=== PATIENT | male | born 1930 | race Caucasian/White ===

== ENCOUNTER 2016-08-18 19:23 | Inpatient (IN) | payer OTHER ==
[~2016-08-18] VITALS: Ht 180.3 cm; Wt 71.8 kg
[~2016-08-18 19:23] MED LIST: ABC PLUS TABLE1 EACH PO; ADULT LOW DOSE81 M1 PO; ADVAIR 250/501 DISK IH; ADVAIR HFA120 INHALA IH; ALBUTEROL SULF8.5 GM IH; ALEVE220 MG PO; ALLERGY25 M2 PO; ALLOPURINOL; ALLOPURINOL300 MG PO; AMBIEN5 MG PO; AMLODIPINE BESYL5 MG PO; ASCORBIC ACID500 M3 PO; ASPIR-LOW81 MG PO; Ascorbic Acid,Ester- PO; BABY ASPIRIN81 M1 PO; BENADRYL25 MG PO; C COMPLEX500 MG PO; CEFDINIR300 MG PO; CEFTRIAXONE1 G1 IM; CIPRO500 MG PO; COBAL-10001000 MCG/2 PO; COLACE100 MG PO; CORTIZONE-10 PL57 GM TP; CYANOCOBAL1000 MCG/2 IM; Celebrex; Coumadin,Jantoven PO; DITROPAN XL10 MG PO; Dulcolax PO; ENOXAPARIN30 MG/0.3 SC; Ecotrin PO; FLAGYL500 MG PO; FOLIC ACID1 MG PO; Folvite PO; GLIPIZIDE; GLIPIZIDE XL10 MG PO; GLIPIZIDE10 MG PO; GLUCOTROL XL10 MG PO; Glucotrol PO; HYDROCHLOROTH12.5 M3 PO; IMDUR60 MG PO; IRON325 M1 PO; ISOSORBIDE; ISOSORBIDE MONO60 MG PO; Imdur PO; KEFLEX500 MG PO; LEVAQUIN750 MG PO; LEVOFLOXACIN750 MG PO; LISINOPRIL10 MG PO; LISINOPRIL5 MG PO; LITE COAT ASPI325 M1 PO; LOVAZA1 GM PO; Levaquin PO; Lovaza PO; MACRODANTIN100 MG PO; METOPROLOL; METOPROLOL SUCC50 MG PO; MIRALAX255 GM PO; MIRTAZAPINE15 MG PO; MIRTAZAPINE30 MG PO; MONUROL SACHET 33 GM PO; NAMENDA10 MG PO; NAPROSYN500 MG PO; NITROFURANTOIN100 MG PO; NORCO 5/3251 TABLET PO; NORVASC10 MG PO; NORVASC2.5 MG PO; NORVASC5 MG PO; ONE-A-DAY ESSE1 EAC1 PO; OXYCODONE HCL5 MG PO; Oscal 500 w/Vitamin PO; PERCOCET 10/1 TABLET PO; PERCOCET 5/31 TABLET PO; PREDNISONE10 MG PO; PREDNISONE20 MG PO; PREDNISONE5 MG PO; PRINIVIL5 MG PO; PROMETHAZINE-C120 ML PO; PROTONIX40 MG PO; PROVENTIL HFA6.7 GM IH; ROBITUSSIN AC,T10 ML PO; SANTYL30 GM TP; SENOKOT S,PE1 TABLET PO; SUPER MULTIVIT1 EACH PO; Senokot S,Pericolace PO; TESSALON PERLE100 MG PO; THERAGRAN1 TABLET PO; TOPROL XL50 MG PO; TYLENOL REGULA325 MG PO; Toprol XL PO; Tylenol Regular Stre PO; VENTOLIN HFA18 GM IH; Vicodin,Norco 5/325 PO; WELCHOL625 MG PO; ZITHROMAX250 MG PO; ZYLOPRIM300 MG PO; ZYRTEC10 M2 PO; Zyloprim PO; [UNRECOGNIZED DRUG - OTHER] PO
[2016-08-18 20:15] LABS: ADD MIUA? YES; BILIRUBIN NEGATIVE; BLOOD TRACE; COLOR YELLOW ((YELLOW)); GLUCOSE (STRIP) NEGATIVE; KETONES NEGATIVE; LEUKOCYTES LARGE; NITRITE POSITIVE; PH, URINE 7.5 (5-8); PROTEIN (STRIP) 30; UROBILINOGEN 0.2 MG/DL (0.2-1.0)
[2016-08-18 20:30] LABS: MCH 31.6 PG (29.0-34.0); MCV 98.7 FL (86-99); MEAN PLAT.VOLUME 10.4 uM^3 (9.0-12.4); PLATELET COUNT 165 K/uL (156-360); RBC DIS.WIDTH-CV 16.1 % (11.8-14.6); RBC DIS.WIDTH-SD 54.9 % (39-53); RED BLOOD COUNT 3.04 M/uL (4.00-5.50)
[2016-08-18 20:35] LABS: WHITE BLOOD COUNT 11.5 K/uL (4.1-10.2)
[2016-08-18 20:38] LABS: CHLORIDE 114 mEq/L (99-109); SODIUM 139 mEq/L (136-147)
[2016-08-18 20:39] LABS: GLUCOSE 145 mg/dL (70-99)
[2016-08-18 20:41] LABS: ANION GAP 10 MEQ/L (2-14)
[2016-08-18 20:43] LABS: GFR ESTIMATE (CALCULATED) 47 mL/min/
[2016-08-18 20:44] LABS: UREA NITROGEN (BUN) 54 mg/dL (9-23)
[2016-08-18 21:00] LABS: WHITE BLOOD CELLS 20-30 /HPF (0-5)
[2016-08-18 21:01] LABS: BACTERIA 4+; CASTS PRESENT /LPF; CRYSTALS NONE SEEN; EPITHELIAL CELLS 1+; HYALINE CASTS 0-5 /LPF; MUCUS NONE SEEN; UCUL ADDED? YES
[2016-08-18] MEDS ORDERED: MICROZIDE12.5 M1 PO (23:09)
[2016-08-18] MEDS ORDERED: GLIPIZIDE XL5 MG PO (23:09)
[2016-08-18] MEDS ORDERED: LO-DOSE ASPIRIN81 M2 PO (23:09)
[2016-08-18] MEDS ORDERED: VITAMIN B122500 MCG PO (23:10)
[2016-08-18] MEDS ORDERED: IRON325 M1 PO (23:10)
[2016-08-18] MEDS ORDERED: CYANOCOBALAM1000 MCG PO (23:26)
[2016-08-18] MEDS ORDERED: LOTRISONE15 GM TP (23:29)
[2016-08-19 00:32] VITALS: BP 109/72
[2016-08-19 05:48] VITALS: BP 126/74
[2016-08-19 09:00] VITALS: BP 106/58
[2016-08-19 20:20] LABS: POINT-OF-CARE METER ID UU14162513
[2016-08-19 21:22] VITALS: BP 121/59
[2016-08-20 00:23] VITALS: BP 109/53
[2016-08-20 04:48] VITALS: BP 132/61
[2016-08-20 06:48] LABS: HEMATOCRIT 26.8 % (38.0-50.0); MCH 31.2 PG (29.0-34.0); MCHC 32.5 G/DL (30.0-36.0); MCV 96.1 FL (86-99); MEAN PLAT.VOLUME 11.1 uM^3 (9.0-12.4); PLATELET COUNT 153 K/uL (156-360); RBC DIS.WIDTH-CV 16.1 % (11.8-14.6); RBC DIS.WIDTH-SD 55.8 % (39-53); RED BLOOD COUNT 2.79 M/uL (4.00-5.50)
[2016-08-20 07:13] LABS: ANION GAP 9 MEQ/L (2-14); CHLORIDE 110 MEQ/L (99-109); GFR ESTIMATE (CALCULATED) 51 mL/min/; GLUCOSE 204 mg/dL (70-99); MAGNESIUM 1.7 mg/dl (1.3-2.7); POTASSIUM 4.9 MEQ/L (3.7-5.4); SAMPLE HEMOLYSIS CHECK 0; SAMPLE ICTERIC CHECK 0; SAMPLE LIPEMIA CHECK 0; SODIUM 135 MEQ/L (136-147); UREA NITROGEN (BUN) 44 mg/dL (9-23)
[2016-08-20 07:38] LABS: POINT-OF-CARE METER ID UU13113831
[2016-08-20 09:03] VITALS: BP 141/67
[2016-08-20 11:59] VITALS: BP 138/62
[2016-08-20 16:29] VITALS: BP 162/74
[2016-08-20 18:38] LABS: POINT-OF-CARE METER ID UU14162513
[2016-08-20 20:00] VITALS: BP 138/63
[2016-08-21 01:00] VITALS: BP 143/65
[2016-08-21 04:00] VITALS: BP 153/80
[2016-08-21 06:30] LABS: ANION GAP 10 MEQ/L (2-14); CHLORIDE 110 MEQ/L (99-109); GFR ESTIMATE (CALCULATED) 55 mL/min/; GLUCOSE 189 mg/dL (70-99); POTASSIUM 5.5 MEQ/L (3.7-5.4); SAMPLE HEMOLYSIS CHECK 0; SAMPLE ICTERIC CHECK 0; SAMPLE LIPEMIA CHECK 0; SODIUM 136 MEQ/L (136-147); UREA NITROGEN (BUN) 51 mg/dL (9-23)
[2016-08-21 06:35] LABS: HEMATOCRIT 28.8 % (38.0-50.0); MCH 31.8 PG (29.0-34.0); MCV 96.3 FL (86-99); MEAN PLAT.VOLUME 11.5 uM^3 (9.0-12.4); PLATELET COUNT 190 K/uL (156-360); RBC DIS.WIDTH-CV 16.1 % (11.8-14.6); RBC DIS.WIDTH-SD 56.7 % (39-53); RED BLOOD COUNT 2.99 M/uL (4.00-5.50)
[2016-08-21 06:36] LABS: WHITE BLOOD COUNT 14.8 K/uL (4.1-10.2)
[2016-08-21 08:01] VITALS: BP 132/65
[2016-08-21 08:23] LABS: POINT-OF-CARE METER ID UU14162513
[2016-08-21 12:11] VITALS: BP 124/61
[2016-08-21 12:42] LABS: POINT-OF-CARE METER ID UU14162513
[2016-08-21 15:20] LABS: ANION GAP 10 MEQ/L (2-14); CHLORIDE 108 MEQ/L (99-109); GFR ESTIMATE (CALCULATED) 51 mL/min/; GLUCOSE 194 mg/dL (70-99); POTASSIUM 5.3 MEQ/L (3.7-5.4); SAMPLE HEMOLYSIS CHECK 0; SAMPLE ICTERIC CHECK 0; SAMPLE LIPEMIA CHECK 0; SODIUM 135 MEQ/L (136-147); UREA NITROGEN (BUN) 55 mg/dL (9-23)
[2016-08-21 16:30] VITALS: BP 143/66
[2016-08-21 17:45] LABS: POINT-OF-CARE METER ID UU14162513
[2016-08-21 21:46] VITALS: BP 159/75
[2016-08-21 22:54] LABS: POINT-OF-CARE METER ID UU13113831
[2016-08-22 00:30] VITALS: BP 146/87
[2016-08-22 06:28] LABS: ANION GAP 9 MEQ/L (2-14); CHLORIDE 112 MEQ/L (99-109); GFR ESTIMATE (CALCULATED) 44 mL/min/; GLUCOSE 46 mg/dL (70-99); POTASSIUM 4.8 MEQ/L (3.7-5.4); SAMPLE HEMOLYSIS CHECK 0; SAMPLE ICTERIC CHECK 0; SAMPLE LIPEMIA CHECK 0; SODIUM 139 MEQ/L (136-147); UREA NITROGEN (BUN) 59 mg/dL (9-23)
[2016-08-22 08:18] VITALS: BP 126/59
[2016-08-22 08:48] LABS: POINT-OF-CARE METER ID UU13113700
[2016-08-22] MEDS ORDERED: GLIPIZIDE5 MG PO (09:34)
[2016-08-22] MEDS ORDERED: CIPROFLOXACIN500 M1 PO (09:34)
[2016-08-22 12:08] VITALS: BP 142/70
[2016-08-22] MEDS ORDERED: DITROPAN5 MG PO (12:36)
== END 2016-08-22 13:59 | disposition home health service (06) | DRG 699 ==
LOC: EME 19:23 → EDOF 22:58 → 5WEST 08-19 00:19
PROVIDERS: Internal Medicine; Nurse Practitioner Adult Health; Student in an Organized Health Care Education/Training Program
DX: T83.518A Infection and inflammatory reaction due to other urinary catheter, initial encounter (principal); N39.0 Urinary tract infection, site not specified; J44.0 Chronic obstructive pulmonary disease with (acute) lower respiratory infection; J20.9 Acute bronchitis, unspecified; T83.038A Leakage of other urinary catheter, initial encounter; Y84.6 Urinary catheterization as the cause of abnormal reaction of the patient, or of later complication, without mention of misadventure at the time of the procedure; E86.0 Dehydration; E87.5 Hyperkalemia; I12.9 Hypertensive chronic kidney disease with stage 1 through stage 4 chronic kidney disease, or unspecified chronic kidney disease; N18.3 Chronic kidney disease, stage 3 (moderate); E11.22 Type 2 diabetes mellitus with diabetic chronic kidney disease; I25.10 Atherosclerotic heart disease of native coronary artery without angina pectoris; E78.5 Hyperlipidemia, unspecified; R33.9 Retention of urine, unspecified; R32 Unspecified urinary incontinence; M10.9 Gout, unspecified; Z66 Do not resuscitate; Z51.5 Encounter for palliative care; Z95.1 Presence of aortocoronary bypass graft; Z95.2 Presence of prosthetic heart valve; Z95.5 Presence of coronary angioplasty implant and graft; Z79.82 Long term (current) use of aspirin; Z88.0 Allergy status to penicillin; Z85.46 Personal history of malignant neoplasm of prostate; Z23 Encounter for immunization
CPT/HCPCS: 71010; 71020; 80048; 80048 91; 81003; 82948; 83605; 83735; 85027; 87040; 87086; 93005; 94640; 94640 76; 94760; 99202; 99281; 99285; G0008; G0378; J0744; J1644; J1815; J2920; J7030; J7040; J7512

== ENCOUNTER 2016-08-24 09:44 | Emergency (ER) | payer OTHER ==
[~2016-08-24] VITALS: Ht 180.3 cm; Wt 73.3 kg
[~2016-08-24 09:44] MED LIST changes: +CIPROFLOXACIN500 M1 PO; +CYANOCOBALAM1000 MCG PO; +DITROPAN5 MG PO; +GLIPIZIDE XL5 MG PO; +GLIPIZIDE5 MG PO; +LO-DOSE ASPIRIN81 M2 PO; +LOTRISONE15 GM TP; +MICROZIDE12.5 M1 PO; +VITAMIN B122500 MCG PO
[2016-08-24 10:44] LABS: CHLORIDE 112 mEq/L (99-109); INTER. NORMALIZED RATIO 1.1; POTASSIUM 4.6 mEq/L (3.7-5.4); PROTHROMBIN TIME 10.7 (9.2-11.2); PTT 23.7 (25-32); SODIUM 139 mEq/L (136-147)
[2016-08-24 10:47] LABS: ANION GAP 10 MEQ/L (2-14); GLUCOSE 136 mg/dL (70-99)
[2016-08-24 10:48] LABS: TOTAL BILIRUBIN 0.4 mg/dL (0.0-1.0)
[2016-08-24 10:50] LABS: ALKALINE PHOSPHATASE 63 IU/L (3-129); GFR ESTIMATE (CALCULATED) 38 mL/min/
[2016-08-24 10:51] LABS: UREA NITROGEN (BUN) 63 mg/dL (9-23)
[2016-08-24 10:52] LABS: EOSINOPHIL (%) 1.3 % (0-5); EOSINOPHIL COUNT 0.1 K/uL (0-0.3); HEMATOCRIT 28.7 % (38.0-50.0); IMMATURE GRANULOCYTE COUNT 0.1 K/uL; LYMPHOCYTE COUNT 1.4 K/uL (1.0-2.8); MCH 31.6 PG (29.0-34.0); MCHC 32.4 G/DL (30.0-36.0); MCV 97.6 FL (86-99); MEAN PLAT.VOLUME 10.3 uM^3 (9.0-12.4); MONOCYTE (%) 7.1 % (3-12); MONOCYTE COUNT 0.7 K/uL (0-0.8); NEUTROPHIL (%) 76.8 % (45-76); NEUTROPHIL COUNT 7.7 K/uL (1.8-6.4); PLATELET COUNT 184 K/uL (156-360); RBC DIS.WIDTH-CV 16.3 % (11.8-14.6); RBC DIS.WIDTH-SD 57.1 % (39-53); RED BLOOD COUNT 2.94 M/uL (4.00-5.50)
[2016-08-24 10:53] LABS: LIPASE 49 U/L (1.0-51.0); TROP-I INTERPRETATION NEGATIVE; TROPONIN-I < 0.01 ng/mL (0.0-0.30)
[2016-08-24 10:57] LABS: ADD MIUA? YES; BILIRUBIN NEGATIVE; BLOOD TRACE; COLOR YELLOW ((YELLOW)); GLUCOSE (STRIP) NEGATIVE; KETONES NEGATIVE; LEUKOCYTES NEGATIVE; NITRITE NEGATIVE; PROTEIN (STRIP) NEGATIVE; SPECIFIC GRAVITY 1.016 (1.000-1.030); UROBILINOGEN 0.2 MG/DL (0.2-1.0)
[2016-08-24 11:23] LABS: BACTERIA RARE; CASTS NONE SEEN /LPF; EPITHELIAL CELLS NONE SEEN; MUCUS NONE SEEN; RED BLOOD CELLS RARE /HPF (0-5); UCUL ADDED? NO; WHITE BLOOD CELLS NONE SEEN /HPF (0-5)
[2016-08-24 11:24] LABS: AMORPHOUS URATES CRYSTALS 1+; CRYSTALS PRESENT
[2016-08-24 12:17] VITALS: BP 123/55
[2016-08-24] MEDS ORDERED: TESSALON PERLE100 MG PO (12:24)
== END 2016-08-24 12:37 | disposition home or self-care (01) ==
LOC: EME → EDBD 09:44 → EME 09:44
PROVIDERS: Emergency Medicine
DX: J06.9 Acute upper respiratory infection, unspecified (principal); E11.9 Type 2 diabetes mellitus without complications; E78.5 Hyperlipidemia, unspecified; F17.200 Nicotine dependence, unspecified, uncomplicated; I10 Essential (primary) hypertension; I25.2 Old myocardial infarction; Z85.46 Personal history of malignant neoplasm of prostate; Z95.1 Presence of aortocoronary bypass graft; Z88.0 Allergy status to penicillin; Z91.041 Radiographic dye allergy status
CPT/HCPCS: 71010; 80053; 81003; 83605; 83690; 84484; 85025; 85610; 85730; 87040; 93005; 99281; 99284

== ENCOUNTER 2016-09-04 14:45 | Inpatient (IN) | payer OTHER ==
[~2016-09-04] VITALS: Ht 180.3 cm; Wt 69.2 kg
[2016-09-04 17:24] LABS: EOSINOPHIL (%) 0.6 % (0-5); EOSINOPHIL COUNT 0.1 K/uL (0-0.3); HEMATOCRIT 24.1 % (38.0-50.0); IMMATURE GRANULOCYTE (%) 0.4 % (0.0-0.7); IMMATURE GRANULOCYTE COUNT 0.5 K/uL; MCH 32.3 PG (29.0-34.0); MCHC 33.2 G/DL (30.0-36.0); MCV 97.2 FL (86-99); MEAN PLAT.VOLUME 9.4 uM^3 (9.0-12.4); MONOCYTE (%) 7.9 % (3-12); MONOCYTE COUNT 1.1 K/uL (0-0.8); PLATELET COUNT 224 K/uL (156-360); RBC DIS.WIDTH-SD 52.8 % (39-53); RED BLOOD COUNT 2.48 M/uL (4.00-5.50)
[2016-09-04 17:25] LABS: WHITE BLOOD COUNT 14.3 K/uL (4.1-10.2)
[2016-09-04 17:36] LABS: CHLORIDE 116 mEq/L (99-109); POTASSIUM 4.9 mEq/L (3.7-5.4); SODIUM 139 mEq/L (136-147)
[2016-09-04 17:38] LABS: GLUCOSE 102 mg/dL (70-99)
[2016-09-04 17:39] LABS: ANION GAP 11 MEQ/L (2-14)
[2016-09-04 17:40] LABS: TOTAL BILIRUBIN 0.4 mg/dL (0.0-1.0)
[2016-09-04 17:41] LABS: ALKALINE PHOSPHATASE 47 IU/L (3-129)
[2016-09-04 17:42] LABS: GFR ESTIMATE (CALCULATED) 41 mL/min/
[2016-09-04 17:43] LABS: TROP-I INTERPRETATION NEGATIVE; TROPONIN-I < 0.01 ng/mL (0.0-0.30); UREA NITROGEN (BUN) 69 mg/dL (9-23)
[2016-09-04 17:58] LABS: ADD MIUA? YES; BILIRUBIN NEGATIVE; BLOOD MODERATE; COLOR YELLOW ((YELLOW)); GLUCOSE (STRIP) NEGATIVE; KETONES NEGATIVE; LEUKOCYTES LARGE; NITRITE POSITIVE; PH, URINE 5.5 (5-8); PROTEIN (STRIP) 30; SPECIFIC GRAVITY 1.017 (1.000-1.030); UROBILINOGEN 0.2 MG/DL (0.2-1.0)
[2016-09-04 18:07] LABS: SAMPLE HEMOLYSIS CHECK 0; SAMPLE ICTERIC CHECK 0; SAMPLE LIPEMIA CHECK 0
[2016-09-04 18:27] LABS: CASTS PRESENT /LPF; HYALINE CASTS 0-5 /LPF
[2016-09-04 18:28] LABS: BACTERIA 3+; CRYSTALS NONE SEEN; MUCUS NONE SEEN; OTHER BUDDING YEAST 3+; UCUL ADDED? YES
[2016-09-04 18:29] LABS: EPITHELIAL CELLS RARE; WHITE BLOOD CELLS 40-50 /HPF (0-5)
[2016-09-04] MEDS ORDERED: DITROPAN XL10 MG PO (19:23)
[2016-09-04 21:35] VITALS: BP 139/60
[2016-09-04 23:02] VITALS: BP 121/63
[2016-09-05 07:22] VITALS: BP 122/59
[2016-09-05 09:16] LABS: EOSINOPHIL (%) 1.4 % (0-5); EOSINOPHIL COUNT 0.1 K/uL (0-0.3); HEMATOCRIT 22.7 % (38.0-50.0); IMMATURE GRANULOCYTE (%) 0.3 % (0.0-0.7); LYMPHOCYTE COUNT 0.9 K/uL (1.0-2.8); MCH 31.8 PG (29.0-34.0); MCHC 33.5 G/DL (30.0-36.0); MEAN PLAT.VOLUME 10.1 uM^3 (9.0-12.4); MONOCYTE (%) 10.2 % (3-12); NEUTROPHIL (%) 78.7 % (45-76); NEUTROPHIL COUNT 7.5 K/uL (1.8-6.4); PLATELET COUNT 197 K/uL (156-360); RBC DIS.WIDTH-CV 16.2 % (11.8-14.6); RBC DIS.WIDTH-SD 56.5 % (39-53); RED BLOOD COUNT 2.39 M/uL (4.00-5.50)
[2016-09-05 09:18] LABS: WHITE BLOOD COUNT 9.6 K/uL (4.1-10.2)
[2016-09-05 09:22] LABS: ANION GAP 6 MEQ/L (2-14); CHLORIDE 115 MEQ/L (99-109); GFR ESTIMATE (CALCULATED) 51 mL/min/; GLUCOSE 113 mg/dL (70-99); POTASSIUM 4.5 MEQ/L (3.7-5.4); SAMPLE HEMOLYSIS CHECK 0; SAMPLE ICTERIC CHECK 0; SAMPLE LIPEMIA CHECK 0; SODIUM 138 MEQ/L (136-147); UREA NITROGEN (BUN) 48 mg/dL (9-23)
[2016-09-05 15:54] VITALS: BP 129/58
[2016-09-05 23:00] VITALS: BP 107/66
[2016-09-06 06:52] LABS: HEMATOCRIT 22.9 % (38.0-50.0); MCHC 33.6 G/DL (30.0-36.0); MEAN PLAT.VOLUME 10.2 uM^3 (9.0-12.4); PLATELET COUNT 197 K/uL (156-360); RBC DIS.WIDTH-CV 16.2 % (11.8-14.6); RBC DIS.WIDTH-SD 56.2 % (39-53); RED BLOOD COUNT 2.41 M/uL (4.00-5.50)
[2016-09-06 07:16] LABS: ANION GAP 6 MEQ/L (2-14); CHLORIDE 111 MEQ/L (99-109); GFR ESTIMATE (CALCULATED) > 59 mL/min/; GLUCOSE 111 mg/dL (70-99); IRON 19 MCG/DL (35-150); POTASSIUM 4.2 MEQ/L (3.7-5.4); SAMPLE HEMOLYSIS CHECK 0; SAMPLE ICTERIC CHECK 0; SAMPLE LIPEMIA CHECK 0; SODIUM 136 MEQ/L (136-147); UREA NITROGEN (BUN) 38 mg/dL (9-23)
[2016-09-06 07:16] LABS: EOSINOPHIL (%) 1.3 % (0-5); EOSINOPHIL COUNT 0.1 K/uL (0-0.3); IMMATURE GRANULOCYTE (%) 0.4 % (0.0-0.7); LYMPHOCYTE COUNT 1.3 K/uL (1.0-2.8); NEUTROPHIL (%) 72.8 % (45-76); NEUTROPHIL COUNT 6.6 K/uL (1.8-6.4)
[2016-09-06 08:10] LABS: INTERNAL CONTROL VALID? YES
[2016-09-06 17:03] VITALS: BP 132/61
[2016-09-06 23:32] VITALS: BP 138/64
[2016-09-07 06:51] LABS: MCH 31.5 PG (29.0-34.0); MCHC 33.6 G/DL (30.0-36.0); MCV 93.6 FL (86-99); MEAN PLAT.VOLUME 9.5 uM^3 (9.0-12.4); PLATELET COUNT 193 K/uL (156-360); RBC DIS.WIDTH-CV 16.3 % (11.8-14.6); RBC DIS.WIDTH-SD 55.6 % (39-53); RED BLOOD COUNT 2.35 M/uL (4.00-5.50)
[2016-09-07 07:22] LABS: ANION GAP 7 MEQ/L (2-14); CHLORIDE 111 MEQ/L (99-109); GFR ESTIMATE (CALCULATED) > 59 mL/min/; GLUCOSE 120 mg/dL (70-99); POTASSIUM 4.2 MEQ/L (3.7-5.4); SAMPLE HEMOLYSIS CHECK 0; SAMPLE ICTERIC CHECK 0; SAMPLE LIPEMIA CHECK 0; SODIUM 137 MEQ/L (136-147); UREA NITROGEN (BUN) 27 mg/dL (9-23)
[2016-09-07 07:50] VITALS: BP 130/63
[2016-09-07 13:42] LABS: ABSOLUTE RETICULOCYTE CT. 0.04 M/uL (0.02-0.08); IMM.RETIC FRACTION 13.1 % (3-19); RETIC HGB EQUIVALENT 28.5 (28-36)
[2016-09-07 13:50] LABS: LACTATE DEHYDROGENASE 126 IU/L (20-246); RETICULOCYTE COUNT 1.8 % (0.5-1.8)
[2016-09-07 15:07] LABS: FERRITIN 956 NG/ML (22-322)
[2016-09-07 15:37] VITALS: BP 134/69
[2016-09-07 16:03] VITALS: BP 138/67
[2016-09-07 17:16] VITALS: BP 152/75
[2016-09-07 18:45] VITALS: BP 148/68
[2016-09-07 23:27] VITALS: BP 140/62
[2016-09-08 06:59] LABS: HEMATOCRIT 27.3 % (38.0-50.0); MCH 31.3 PG (29.0-34.0); MCHC 33.3 G/DL (30.0-36.0); MCV 93.8 FL (86-99); MEAN PLAT.VOLUME 10.3 uM^3 (9.0-12.4); PLATELET COUNT 206 K/uL (156-360); RBC DIS.WIDTH-CV 16.6 % (11.8-14.6); WHITE BLOOD COUNT 7.5 K/uL (4.1-10.2)
[2016-09-08 07:05] LABS: RED BLOOD COUNT 2.91 M/uL (4.00-5.50)
[2016-09-08 07:06] LABS: HEM NON-PRINT COM 1 L
[2016-09-08 07:32] LABS: ANION GAP 9 MEQ/L (2-14); CHLORIDE 109 MEQ/L (99-109); GFR ESTIMATE (CALCULATED) > 59 mL/min/; GLUCOSE 119 mg/dL (70-99); POTASSIUM 4.5 MEQ/L (3.7-5.4); SAMPLE HEMOLYSIS CHECK 0; SAMPLE ICTERIC CHECK 0; SAMPLE LIPEMIA CHECK 0; SODIUM 136 MEQ/L (136-147); UREA NITROGEN (BUN) 25 mg/dL (9-23)
[2016-09-08 09:12] VITALS: BP 149/71
== END 2016-09-08 15:53 | disposition home health service (06) | DRG 698 ==
LOC: EME 14:45 → EDOF 20:10 → 5EAST 20:10 → EDOF 20:10 → 5EAST 21:12
PROVIDERS: Emergency Medicine; Internal Medicine; Physician Assistant
DX: T83.518A Infection and inflammatory reaction due to other urinary catheter, initial encounter (principal); N39.0 Urinary tract infection, site not specified; J15.9 Unspecified bacterial pneumonia; E87.2 Acidosis; Y84.6 Urinary catheterization as the cause of abnormal reaction of the patient, or of later complication, without mention of misadventure at the time of the procedure; R64 Cachexia; N17.9 Acute kidney failure, unspecified; F03.90 Unspecified dementia, unspecified severity, without behavioral disturbance, psychotic disturbance, mood disturbance, and anxiety; D64.9 Anemia, unspecified; I25.10 Atherosclerotic heart disease of native coronary artery without angina pectoris; I12.9 Hypertensive chronic kidney disease with stage 1 through stage 4 chronic kidney disease, or unspecified chronic kidney disease; N18.3 Chronic kidney disease, stage 3 (moderate); Z85.46 Personal history of malignant neoplasm of prostate; B96.20 Unspecified Escherichia coli [E. coli] as the cause of diseases classified elsewhere; Z66 Do not resuscitate; Z51.5 Encounter for palliative care; E86.0 Dehydration; T83.031A Leakage of indwelling urethral catheter, initial encounter; E11.22 Type 2 diabetes mellitus with diabetic chronic kidney disease; R78.5 Finding of other psychotropic drug in blood; Z95.1 Presence of aortocoronary bypass graft; M10.9 Gout, unspecified
CPT/HCPCS: 71020; 80048; 80053; 81003; 82272; 82607; 82728; 83540; 83605; 83615; 84466; 84484; 84550; 85025; 85027; 85045; 86850; 86900; 86901; 86920; 87040; 87077; 87086; 87186; 87449; 93005; 94760; 99202; 99281; 99285; J0692; J1335; J1644; J7030; J7040; J7050; P9016

== ENCOUNTER 2016-11-23 21:51 | Emergency (ER) | payer OTHER ==
[~2016-11-23] VITALS: Ht 180.3 cm; Wt 68.9 kg
[2016-11-23 23:36] VITALS: BP 150/60
== END 2016-11-23 23:40 | disposition home or self-care (01) ==
LOC: EME 21:51
PROC: 0T2BX0Z Change Drainage Device in Bladder, External Approach (ICD-10-PCS; principal; 2016-11-23)
DX: T83.098A Other mechanical complication of other urinary catheter, initial encounter (principal); R31.9 Hematuria, unspecified; R34 Anuria and oliguria; R33.9 Retention of urine, unspecified; E11.9 Type 2 diabetes mellitus without complications; E78.5 Hyperlipidemia, unspecified; J44.9 Chronic obstructive pulmonary disease, unspecified; Z85.46 Personal history of malignant neoplasm of prostate; F03.90 Unspecified dementia, unspecified severity, without behavioral disturbance, psychotic disturbance, mood disturbance, and anxiety; Z95.1 Presence of aortocoronary bypass graft; Z90.49 Acquired absence of other specified parts of digestive tract; F17.200 Nicotine dependence, unspecified, uncomplicated
CPT/HCPCS: 99281; 99282

== ENCOUNTER 2017-04-26 11:23 | Inpatient (IN) | payer OTHER ==
[~2017-04-26] VITALS: Ht 177.8 cm; Wt 96.2 kg
[2017-04-26 12:23] LABS: EOSINOPHIL (%) 8.6 % (0-5); EOSINOPHIL COUNT 0.7 K/uL (0-0.3); HEMATOCRIT 30.3 % (38.0-50.0); IMMATURE GRANULOCYTE (%) 0.4 % (0.0-0.7); INSTRUMENT ABS NEUTROPHIL CT 5.1 K/uL; LYMPHOCYTE COUNT 1.5 K/uL (1.0-2.8); MCH 31.4 PG (29.0-34.0); MCHC 31.4 G/DL (30.0-36.0); MEAN PLAT.VOLUME 10.4 uM^3 (9.0-12.4); MONOCYTE (%) 8.8 % (3-12); MONOCYTE COUNT 0.7 K/uL (0-0.8); NEUTROPHIL (%) 63.7 % (45-76); NEUTROPHIL COUNT 5.1 K/uL (1.8-6.4); PLATELET COUNT 198 K/uL (156-360); RBC DIS.WIDTH-CV 15.2 % (11.8-14.6); RBC DIS.WIDTH-SD 55.9 % (39-53); RED BLOOD COUNT 3.03 M/uL (4.00-5.50)
[2017-04-26 12:30] LABS: INTER. NORMALIZED RATIO 1.1; PROTHROMBIN TIME 11.9 SEC (10.2-12.9)
[2017-04-26 12:34] LABS: CHLORIDE 109 mEq/L (99-109); POTASSIUM 3.8 mEq/L (3.7-5.4); SODIUM 139 mEq/L (136-147)
[2017-04-26 12:36] LABS: GLUCOSE 112 mg/dL (70-99)
[2017-04-26 12:37] LABS: ANION GAP 8 MEQ/L (2-14)
[2017-04-26 12:40] LABS: GFR ESTIMATE (CALCULATED) > 59 mL/min/
[2017-04-26 12:41] LABS: UREA NITROGEN (BUN) 26 mg/dL (9-23)
[2017-04-26] MEDS ORDERED: ALLOPURINOL300 MG PO (14:43)
[2017-04-26] MEDS ORDERED: METOPROLOL SUCC50 MG PO (14:45)
[2017-04-26] MEDS ORDERED: PROMETHAZINE HC25 M1 PO (14:46)
[2017-04-26] MEDS ORDERED: BISAC-EVAC10 MG PR (14:46)
[2017-04-26] MEDS ORDERED: COMPAZINE10 MG PO (14:47)
[2017-04-26] MEDS ORDERED: MORPHINE CON20 MG/M1 PO (14:48)
[2017-04-26] MEDS ORDERED: ATIVAN0.5 MG PO (14:48)
[2017-04-26] MEDS ORDERED: ANASPAZ0.125 MG PO (14:49)
[2017-04-26] MEDS ORDERED: HALOPERIDOL2 MG/1 ML PO (14:50)
[2017-04-26] MEDS ORDERED: ACEPHEN650 MG PR (14:50)
[2017-04-26] MEDS ORDERED: TYLENOL ARTHRI650 MG PO (14:50)
[2017-04-26] MEDS ORDERED: ADVAIR HFA120 INHALA IH (14:51)
[2017-04-26] MEDS ORDERED: PHENERGAN-CODE120 ML PO (14:52)
[2017-04-26] MEDS ORDERED: PROVENTIL HFA6.7 GM IH (14:52)
[2017-04-26] MEDS ORDERED: GLUCOPHAGE500 MG PO (14:52)
[2017-04-26] MEDS ORDERED: TRAMADOL HCL50 MG PO (14:53)
[2017-04-26] MEDS ORDERED: SENNA S TABLET1 EACH PO (14:53)
[2017-04-26] MEDS ORDERED: ARICEPT10 MG PO (14:54)
[2017-04-26] MEDS ORDERED: GLIPIZIDE5 MG PO (14:54)
[2017-04-26] MEDS ORDERED: GABAPENTIN100 MG PO (14:55)
[2017-04-26] MEDS ORDERED: COUGH SYRU100 MG/5 M PO (14:55)
[2017-04-26 17:45] VITALS: BP 158/77
[2017-04-26 23:58] VITALS: BP 111/56
[2017-04-27 04:32] VITALS: BP 117/53
[2017-04-27 08:15] VITALS: BP 100/51
[2017-04-27 11:43] VITALS: BP 111/64
[2017-04-27 15:50] VITALS: BP 122/59
[2017-04-27 19:36] VITALS: BP 144/86
[2017-04-27 23:17] VITALS: BP 173/81
[2017-04-28] VITALS (14 sets, daily range): BP systolic 129–176; BP diastolic 61–90
[2017-04-28 11:43] LABS: ANION GAP 8 MEQ/L (2-14); CHLORIDE 111 MEQ/L (99-109); GFR ESTIMATE (CALCULATED) > 59 mL/min/; GLUCOSE 140 mg/dL (70-99); POTASSIUM 4.5 MEQ/L (3.7-5.4); SAMPLE HEMOLYSIS CHECK 0; SAMPLE ICTERIC CHECK 0; SAMPLE LIPEMIA CHECK 0; SODIUM 139 MEQ/L (136-147); UREA NITROGEN (BUN) 28 mg/dL (9-23)
[2017-04-28 11:46] LABS: EOSINOPHIL (%) 2.4 % (0-5); EOSINOPHIL COUNT 0.2 K/uL (0-0.3); HEMATOCRIT 19.9 % (38.0-50.0); IMMATURE GRANULOCYTE (%) 0.3 % (0.0-0.7); INSTRUMENT ABS NEUTROPHIL CT 6.2 K/uL; LYMPHOCYTE COUNT 1.2 K/uL (1.0-2.8); MCH 32.3 PG (29.0-34.0); MCHC 32.2 G/DL (30.0-36.0); MCV 100.5 FL (86-99); MEAN PLAT.VOLUME 10.9 uM^3 (9.0-12.4); MONOCYTE COUNT 1.5 K/uL (0-0.8); NEUTROPHIL (%) 67.8 % (45-76); NEUTROPHIL COUNT 6.2 K/uL (1.8-6.4); PLATELET COUNT 139 K/uL (156-360); RBC DIS.WIDTH-CV 15.6 % (11.8-14.6); RED BLOOD COUNT 1.98 M/uL (4.00-5.50); WHITE BLOOD COUNT 9.1 K/uL (4.1-10.2)
[2017-04-28 12:48] LABS: EOSINOPHIL (%) 2.8 % (0-5); EOSINOPHIL COUNT 0.3 K/uL (0-0.3); HEMATOCRIT 20.9 % (38.0-50.0); IMMATURE GRANULOCYTE (%) 0.3 % (0.0-0.7); INSTRUMENT ABS NEUTROPHIL CT 5.8 K/uL; LYMPHOCYTE COUNT 1.4 K/uL (1.0-2.8); MCH 30.8 PG (29.0-34.0); MCHC 31.1 G/DL (30.0-36.0); MCV 99.1 FL (86-99); MEAN PLAT.VOLUME 10.5 uM^3 (9.0-12.4); MONOCYTE (%) 15.7 % (3-12); MONOCYTE COUNT 1.4 K/uL (0-0.8); NEUTROPHIL (%) 65.7 % (45-76); NEUTROPHIL COUNT 5.8 K/uL (1.8-6.4); PLATELET COUNT 143 K/uL (156-360); RBC DIS.WIDTH-CV 15.4 % (11.8-14.6); RBC DIS.WIDTH-SD 55.6 % (39-53); RED BLOOD COUNT 2.11 M/uL (4.00-5.50); WHITE BLOOD COUNT 8.8 K/uL (4.1-10.2)
[2017-04-28 17:27] LABS: IRON 27 MCG/DL (35-150)
[2017-04-28 23:35] LABS: HEMATOCRIT 25.2 % (38.0-50.0); MCV 93.3 FL (86-99)
[2017-04-29 04:05] VITALS: BP 152/78
[2017-04-29 06:07] LABS: EOSINOPHIL (%) 3.5 % (0-5); EOSINOPHIL COUNT 0.3 K/uL (0-0.3); HEMATOCRIT 25.1 % (38.0-50.0); IMMATURE GRANULOCYTE (%) 0.4 % (0.0-0.7); INSTRUMENT ABS NEUTROPHIL CT 6.3 K/uL; LYMPHOCYTE COUNT 1.5 K/uL (1.0-2.8); MCH 31.3 PG (29.0-34.0); MCHC 33.5 G/DL (30.0-36.0); MCV 93.7 FL (86-99); MEAN PLAT.VOLUME 10.5 uM^3 (9.0-12.4); MONOCYTE (%) 14.3 % (3-12); MONOCYTE COUNT 1.4 K/uL (0-0.8); NEUTROPHIL (%) 66.3 % (45-76); NEUTROPHIL COUNT 6.3 K/uL (1.8-6.4); PLATELET COUNT 130 K/uL (156-360); RBC DIS.WIDTH-SD 58.3 % (39-53); WHITE BLOOD COUNT 9.6 K/uL (4.1-10.2)
[2017-04-29 06:23] LABS: RED BLOOD COUNT 2.68 M/uL (4.00-5.50)
[2017-04-29 06:26] LABS: ANION GAP 8 MEQ/L (2-14); CHLORIDE 109 MEQ/L (99-109); GFR ESTIMATE (CALCULATED) > 59 mL/min/; GLUCOSE 136 mg/dL (70-99); POTASSIUM 4.2 MEQ/L (3.7-5.4); SAMPLE HEMOLYSIS CHECK 0; SAMPLE ICTERIC CHECK 0; SAMPLE LIPEMIA CHECK 0; SODIUM 139 MEQ/L (136-147); UREA NITROGEN (BUN) 25 mg/dL (9-23)
[2017-04-29 08:28] VITALS: BP 148/68
[2017-04-29 10:15] VITALS: BP 111/62
[2017-04-29 15:49] VITALS: BP 11/56
[2017-04-29 16:27] LABS: POINT-OF-CARE METER ID UU13113675
[2017-04-29 19:41] VITALS: BP 159/67
[2017-04-29 20:07] LABS: HEMATOCRIT 27.6 % (38.0-50.0); MCV 96.2 FL (86-99)
[2017-04-29 23:32] VITALS: BP 133/60
[2017-04-30 04:05] VITALS: BP 134/61
[2017-04-30 07:53] LABS: ANION GAP 11 MEQ/L (2-14); CHLORIDE 112 MEQ/L (99-109); SAMPLE HEMOLYSIS CHECK 1; SAMPLE ICTERIC CHECK 0; SAMPLE LIPEMIA CHECK 0; SODIUM 139 MEQ/L (136-147)
[2017-04-30 07:55] LABS: GFR ESTIMATE (CALCULATED) 51 mL/min/; GLUCOSE 135 mg/dL (70-99); POTASSIUM 5.2 MEQ/L (3.7-5.4); UREA NITROGEN (BUN) 29 mg/dL (9-23)
[2017-04-30 08:45] LABS: EOSINOPHIL (%) 0.1 % (0-5); HEMATOCRIT 22.4 % (38.0-50.0); IMMATURE GRANULOCYTE (%) 0.5 % (0.0-0.7); IMMATURE GRANULOCYTE COUNT 0.1 K/uL; INSTRUMENT ABS NEUTROPHIL CT 9.5 K/uL; LYMPHOCYTE COUNT 0.6 K/uL (1.0-2.8); MCH 31.3 PG (29.0-34.0); MCHC 32.6 G/DL (30.0-36.0); MCV 96.1 FL (86-99); MEAN PLAT.VOLUME 10.6 uM^3 (9.0-12.4); MONOCYTE (%) 12.8 % (3-12); MONOCYTE COUNT 1.5 K/uL (0-0.8); NEUTROPHIL COUNT 9.5 K/uL (1.8-6.4); PLATELET COUNT 132 K/uL (156-360); RBC DIS.WIDTH-SD 55.8 % (39-53); RED BLOOD COUNT 2.33 M/uL (4.00-5.50); WHITE BLOOD COUNT 11.7 K/uL (4.1-10.2)
[2017-04-30 12:09] VITALS: BP 125/58
[2017-04-30 14:22] LABS: HEMATOCRIT 23.5 % (38.0-50.0); MCV 97.1 FL (86-99)
[2017-04-30 16:29] VITALS: BP 115/56
[2017-04-30 20:02] VITALS: BP 135/63
[2017-05-01] VITALS (9 sets, daily range): BP systolic 101–130; BP diastolic 49–59
[2017-05-01 04:34] LABS: ADD MIUA? YES; BILIRUBIN NEGATIVE; BLOOD LARGE; COLOR YELLOW ((YELLOW)); GLUCOSE (STRIP) NEGATIVE; KETONES NEGATIVE; LEUKOCYTES MODERATE; NITRITE NEGATIVE; PROTEIN (STRIP) 30; SPECIFIC GRAVITY 1.016 (1.000-1.030); UROBILINOGEN 0.2 MG/DL (0.2-1.0)
[2017-05-01 05:03] LABS: BACTERIA 1+ /HPF; CRYSTALS PRESENT; EPITHELIAL CELLS 1+ /HPF; MUCUS 1+ /LPF; UCUL ADDED? YES; WHITE BLOOD CELLS 15-20 /HPF (0-5)
[2017-05-01 05:04] LABS: AMORPHOUS URATES CRYSTALS 2+
[2017-05-01 07:12] LABS: EOSINOPHIL (%) 0.2 % (0-5); HEMATOCRIT 18.7 % (38.0-50.0); IMMATURE GRANULOCYTE (%) 0.9 % (0.0-0.7); IMMATURE GRANULOCYTE COUNT 0.1 K/uL; INSTRUMENT ABS NEUTROPHIL CT 9.9 K/uL; LYMPHOCYTE COUNT 1.3 K/uL (1.0-2.8); MCHC 34.2 G/DL (30.0-36.0); MCV 96.4 FL (86-99); MEAN PLAT.VOLUME 11.4 uM^3 (9.0-12.4); MONOCYTE (%) 9.2 % (3-12); MONOCYTE COUNT 1.2 K/uL (0-0.8); NEUTROPHIL (%) 79.1 % (45-76); NEUTROPHIL COUNT 9.9 K/uL (1.8-6.4); PLATELET COUNT 146 K/uL (156-360); RBC DIS.WIDTH-CV 15.4 % (11.8-14.6); RBC DIS.WIDTH-SD 53.5 % (39-53); RED BLOOD COUNT 1.94 M/uL (4.00-5.50); WHITE BLOOD COUNT 12.5 K/uL (4.1-10.2)
[2017-05-01 07:38] LABS: ALKALINE PHOSPHATASE 47 IU/L (3-129); ANION GAP 6 MEQ/L (2-14); CHLORIDE 111 MEQ/L (99-109); GFR ESTIMATE (CALCULATED) 47 mL/min/; GLUCOSE 125 mg/dL (70-99); POTASSIUM 4.2 MEQ/L (3.7-5.4); SAMPLE HEMOLYSIS CHECK 0; SAMPLE ICTERIC CHECK 0; SAMPLE LIPEMIA CHECK 0; SODIUM 139 MEQ/L (136-147); TOTAL BILIRUBIN 0.5 MG/DL (0.0-1.0); UREA NITROGEN (BUN) 37 mg/dL (9-23)
[2017-05-01 12:03] LABS: POINT-OF-CARE METER ID UU14117124
[2017-05-01 16:51] LABS: POINT-OF-CARE METER ID UU14117124
[2017-05-01 21:21] LABS: POINT-OF-CARE METER ID UU14117124
[2017-05-02] VITALS (11 sets, daily range): BP systolic 116–151; BP diastolic 56–88
[2017-05-02 06:45] LABS: POINT-OF-CARE METER ID UU14208753
[2017-05-02 07:03] LABS: EOSINOPHIL (%) 0.5 % (0-5); EOSINOPHIL COUNT 0.1 K/uL (0-0.3); HEMATOCRIT 19.9 % (38.0-50.0); IMMATURE GRANULOCYTE (%) 0.7 % (0.0-0.7); IMMATURE GRANULOCYTE COUNT 0.1 K/uL; INSTRUMENT ABS NEUTROPHIL CT 10.1 K/uL; LYMPHOCYTE COUNT 0.9 K/uL (1.0-2.8); MCH 31.8 PG (29.0-34.0); MCHC 33.7 G/DL (30.0-36.0); MCV 94.3 FL (86-99); MEAN PLAT.VOLUME 10.8 uM^3 (9.0-12.4); MONOCYTE (%) 8.6 % (3-12); MONOCYTE COUNT 1.1 K/uL (0-0.8); NEUTROPHIL (%) 82.6 % (45-76); NEUTROPHIL COUNT 10.1 K/uL (1.8-6.4); PLATELET COUNT 143 K/uL (156-360); RBC DIS.WIDTH-CV 16.1 % (11.8-14.6); RED BLOOD COUNT 2.11 M/uL (4.00-5.50); WHITE BLOOD COUNT 12.2 K/uL (4.1-10.2)
[2017-05-02 07:11] LABS: ALKALINE PHOSPHATASE 58 IU/L (3-129); ANION GAP 10 MEQ/L (2-14); CHLORIDE 111 MEQ/L (99-109); GFR ESTIMATE (CALCULATED) 55 mL/min/; GLUCOSE 126 mg/dL (70-99); POTASSIUM 4.2 MEQ/L (3.7-5.4); SAMPLE HEMOLYSIS CHECK 0; SAMPLE ICTERIC CHECK 0; SAMPLE LIPEMIA CHECK 0; SODIUM 140 MEQ/L (136-147); UREA NITROGEN (BUN) 36 mg/dL (9-23)
[2017-05-02 07:12] LABS: TOTAL BILIRUBIN 0.8 MG/DL (0.0-1.0)
[2017-05-02 11:38] LABS: POINT-OF-CARE METER ID UU14208753
[2017-05-02 21:29] LABS: POINT-OF-CARE METER ID UU14208753
[2017-05-03 03:34] VITALS: BP 147/69
[2017-05-03 06:05] LABS: EOSINOPHIL (%) 2.6 % (0-5); EOSINOPHIL COUNT 0.3 K/uL (0-0.3); HEMATOCRIT 22.4 % (38.0-50.0); IMMATURE GRANULOCYTE (%) 0.9 % (0.0-0.7); IMMATURE GRANULOCYTE COUNT 0.1 K/uL; LYMPHOCYTE COUNT 0.8 K/uL (1.0-2.8); MCH 31.5 PG (29.0-34.0); MCHC 33.5 G/DL (30.0-36.0); MCV 94.1 FL (86-99); MEAN PLAT.VOLUME 10.7 uM^3 (9.0-12.4); MONOCYTE (%) 10.3 % (3-12); MONOCYTE COUNT 1.1 K/uL (0-0.8); NEUTROPHIL (%) 78.4 % (45-76); PLATELET COUNT 153 K/uL (156-360); RBC DIS.WIDTH-CV 16.1 % (11.8-14.6); RBC DIS.WIDTH-SD 54.5 % (39-53); RED BLOOD COUNT 2.38 M/uL (4.00-5.50); WHITE BLOOD COUNT 10.2 K/uL (4.1-10.2)
[2017-05-03 06:31] LABS: ALKALINE PHOSPHATASE 91 IU/L (3-129); ANION GAP 9 MEQ/L (2-14); CHLORIDE 109 MEQ/L (99-109); GFR ESTIMATE (CALCULATED) > 59 mL/min/; GLUCOSE 110 mg/dL (70-99); POTASSIUM 4.1 MEQ/L (3.7-5.4); SAMPLE HEMOLYSIS CHECK 0; SAMPLE ICTERIC CHECK 0; SAMPLE LIPEMIA CHECK 0; SODIUM 138 MEQ/L (136-147); TOTAL BILIRUBIN 0.9 MG/DL (0.0-1.0); UREA NITROGEN (BUN) 36 mg/dL (9-23)
[2017-05-03 06:36] LABS: POINT-OF-CARE METER ID UU14188577
[2017-05-03 07:47] VITALS: BP 124/59
[2017-05-03 11:33] LABS: POINT-OF-CARE METER ID UU14117124
[2017-05-03 11:36] VITALS: BP 122/58
[2017-05-03 16:13] VITALS: BP 143/65
[2017-05-03 16:19] LABS: POINT-OF-CARE METER ID UU14208753
[2017-05-03 19:54] VITALS: BP 133/80
[2017-05-03 21:24] LABS: POINT-OF-CARE METER ID UU14117124
[2017-05-03 23:30] VITALS: BP 128/59
[2017-05-04 03:20] LABS: POINT-OF-CARE METER ID UU14117124
[2017-05-04 04:21] VITALS: BP 166/77
[2017-05-04 05:29] LABS: EOSINOPHIL (%) 5.2 % (0-5); EOSINOPHIL COUNT 0.4 K/uL (0-0.3); HEMATOCRIT 24.5 % (38.0-50.0); IMMATURE GRANULOCYTE (%) 0.9 % (0.0-0.7); IMMATURE GRANULOCYTE COUNT 0.1 K/uL; INSTRUMENT ABS NEUTROPHIL CT 6.1 K/uL; LYMPHOCYTE COUNT 0.8 K/uL (1.0-2.8); MCH 30.3 PG (29.0-34.0); MCHC 31.4 G/DL (30.0-36.0); MCV 96.5 FL (86-99); MEAN PLAT.VOLUME 10.5 uM^3 (9.0-12.4); MONOCYTE (%) 12.7 % (3-12); MONOCYTE COUNT 1.1 K/uL (0-0.8); NEUTROPHIL (%) 72.1 % (45-76); NEUTROPHIL COUNT 6.1 K/uL (1.8-6.4); PLATELET COUNT 185 K/uL (156-360); RBC DIS.WIDTH-CV 15.7 % (11.8-14.6); RBC DIS.WIDTH-SD 53.9 % (39-53); RED BLOOD COUNT 2.54 M/uL (4.00-5.50); WHITE BLOOD COUNT 8.5 K/uL (4.1-10.2)
[2017-05-04 05:55] LABS: ANION GAP 8 MEQ/L (2-14); CHLORIDE 107 MEQ/L (99-109); GFR ESTIMATE (CALCULATED) > 59 mL/min/; GLUCOSE 115 mg/dL (70-99); SAMPLE HEMOLYSIS CHECK 0; SAMPLE ICTERIC CHECK 0; SAMPLE LIPEMIA CHECK 0; SODIUM 138 MEQ/L (136-147); TOTAL BILIRUBIN 0.9 MG/DL (0.0-1.0); UREA NITROGEN (BUN) 37 mg/dL (9-23)
[2017-05-04 05:57] LABS: ALKALINE PHOSPHATASE 128 IU/L (3-129)
[2017-05-04 07:14] LABS: POINT-OF-CARE METER ID UU14208753
[2017-05-04 07:37] VITALS: BP 169/79
[2017-05-04 12:39] VITALS: BP 138/63
[2017-05-04 17:03] LABS: POINT-OF-CARE METER ID UU14208753
[2017-05-04 17:42] VITALS: BP 118/58
[2017-05-04 19:26] VITALS: BP 130/61
[2017-05-04 21:50] LABS: POINT-OF-CARE METER ID UU14208753
[2017-05-05 00:11] VITALS: BP 133/70
[2017-05-05 04:25] VITALS: BP 197/90
[2017-05-05 06:35] LABS: POINT-OF-CARE METER ID UU14208753
[2017-05-05 08:15] VITALS: BP 181/83
[2017-05-05 10:40] LABS: MCH 30.7 PG (29.0-34.0); MCHC 31.9 G/DL (30.0-36.0); MCV 96.3 FL (86-99); MEAN PLAT.VOLUME 10.4 uM^3 (9.0-12.4); RBC DIS.WIDTH-CV 15.7 % (11.8-14.6); RBC DIS.WIDTH-SD 52.5 % (39-53); WHITE BLOOD COUNT 9.3 K/uL (4.1-10.2)
[2017-05-05 10:41] LABS: PLATELET COUNT 253 K/uL (156-360)
[2017-05-05 10:56] LABS: ANION GAP 8 MEQ/L (2-14); CHLORIDE 106 MEQ/L (99-109); GFR ESTIMATE (CALCULATED) > 59 mL/min/; GLUCOSE 162 mg/dL (70-99); SAMPLE HEMOLYSIS CHECK 0; SAMPLE ICTERIC CHECK 0; SAMPLE LIPEMIA CHECK 0; SODIUM 138 MEQ/L (136-147); UREA NITROGEN (BUN) 31 mg/dL (9-23)
[2017-05-05 11:41] LABS: POINT-OF-CARE METER ID UU14208753
[2017-05-05 12:03] VITALS: BP 166/73
[2017-05-05 15:27] VITALS: BP 154/70
[2017-05-05 17:17] LABS: POINT-OF-CARE METER ID UU14117124
[2017-05-05 19:20] VITALS: BP 147/65
[2017-05-06 00:10] VITALS: BP 152/63
[2017-05-06 04:01] VITALS: BP 163/76
[2017-05-06 06:25] LABS: POINT-OF-CARE METER ID UU14117124
[2017-05-06 07:51] LABS: POINT-OF-CARE METER ID UU14117124
[2017-05-06 09:09] VITALS: BP 159/72
[2017-05-06 10:47] LABS: HEMATOCRIT 23.1 % (38.0-50.0); MCH 31.9 PG (29.0-34.0); MCHC 32.5 G/DL (30.0-36.0); MCV 98.3 FL (86-99); MEAN PLAT.VOLUME 10.2 uM^3 (9.0-12.4); PLATELET COUNT 270 K/uL (156-360); RBC DIS.WIDTH-SD 53.9 % (39-53); RED BLOOD COUNT 2.35 M/uL (4.00-5.50)
[2017-05-06 11:10] LABS: ANION GAP 10 MEQ/L (2-14); CHLORIDE 106 MEQ/L (99-109); GFR ESTIMATE (CALCULATED) > 59 mL/min/; GLUCOSE 180 mg/dL (70-99); POTASSIUM 4.1 MEQ/L (3.7-5.4); SAMPLE HEMOLYSIS CHECK 0; SAMPLE ICTERIC CHECK 0; SAMPLE LIPEMIA CHECK 0; SODIUM 140 MEQ/L (136-147); UREA NITROGEN (BUN) 32 mg/dL (9-23)
[2017-05-06 11:51] LABS: POINT-OF-CARE METER ID UU14117124
[2017-05-06] MEDS ORDERED: SPIRIVA RESPIMAT4 GM IH (12:39)
[2017-05-06] MEDS ORDERED: TYLENOL REGULA325 MG PO (12:40)
[2017-05-06 12:41] VITALS: BP 131/60
[2017-05-06] MEDS ORDERED: NOVOLOG PE100 UNITS/ SC (12:43)
[2017-05-06] MEDS ORDERED: DITROPAN5 MG PO (12:44)
[2017-05-06] MEDS ORDERED: LOVENOX40 MG/0.4 SC (13:33)
[2017-05-06 15:43] LABS: POINT-OF-CARE METER ID UU14117124
[2017-05-06 16:07] VITALS: BP 123/58
== END 2017-05-06 16:27 | DRG 480 ==
LOC: EME 11:23 → EDOF 13:55 → 3EAST 13:55 → ENRESERV 14:01 → 3EAST 16:18
PROVIDERS: Emergency Medicine; Hospitalist; Internal Medicine; Orthopaedic Surgery
PROC: 30233N1 Transfusion of Nonautologous Red Blood Cells into Peripheral Vein, Percutaneous Approach (ICD-10-PCS; principal; 2017-04-28)
PROC: 0QS704Z Reposition Left Upper Femur with Internal Fixation Device, Open Approach (ICD-10-PCS; 2017-04-29)
DX: M84.452A Pathological fracture, left femur, initial encounter for fracture (principal); M97.02XA Periprosthetic fracture around internal prosthetic left hip joint, initial encounter; G30.9 Alzheimer's disease, unspecified; F02.80 Dementia in other diseases classified elsewhere, unspecified severity, without behavioral disturbance, psychotic disturbance, mood disturbance, and anxiety; Z95.1 Presence of aortocoronary bypass graft; Z96.643 Presence of artificial hip joint, bilateral; Z66 Do not resuscitate; L89.152 Pressure ulcer of sacral region, stage 2; L89.329 Pressure ulcer of left buttock, unspecified stage; N17.9 Acute kidney failure, unspecified; C61 Malignant neoplasm of prostate; T83.031A Leakage of indwelling urethral catheter, initial encounter; Y73.8 Miscellaneous gastroenterology and urology devices associated with adverse incidents, not elsewhere classified; E78.5 Hyperlipidemia, unspecified; I25.10 Atherosclerotic heart disease of native coronary artery without angina pectoris; J44.9 Chronic obstructive pulmonary disease, unspecified; F17.200 Nicotine dependence, unspecified, uncomplicated; E43 Unspecified severe protein-calorie malnutrition; I25.2 Old myocardial infarction; M10.9 Gout, unspecified; R32 Unspecified urinary incontinence; W18.30XA Fall on same level, unspecified, initial encounter; D53.9 Nutritional anemia, unspecified; E61.1 Iron deficiency; E11.9 Type 2 diabetes mellitus without complications
CPT/HCPCS: 70450; 71010; 73020; 73030; 73130; 73502; 76000; 80048; 80053; 81003; 82272; 82607; 82948; 83540; 84466; 85014; 85018; 85025; 85025 91; 85027; 85610; 86850; 86900; 86901; 86920; 87040; 87077; 87086; 87186; 90686; 93005; 93971; 94010; 94640; 94640 76; 94799; 97530 GP; 99202; 99281; 99285; C1713; J0330; J0690; J0692; J0696; J1100; J1170; J1650; J1815; J1885; J1940; J2270; J2310; J2405; J3010; J7030; J7050; P9016; P9040; P9045; Q0138

== ENCOUNTER 2017-07-04 11:10 | Emergency (ER) | payer OTHER ==
[~2017-07-04] VITALS: Ht 180.3 cm; Wt 75.4 kg
[~2017-07-04 11:10] MED LIST changes: +ACEPHEN650 MG PR; +ANASPAZ0.125 MG PO; +ARICEPT10 MG PO; +ASPERCREME1 EACH TP; +ASPIR 8181 M1 PO; +ATIVAN0.5 MG PO; +BISAC-EVAC10 MG PR; +CEFTIN250 MG PO; +COMPAZINE10 MG PO; +COUGH SYRU100 MG/5 M PO; +DULCOLAX10 MG PR; +FLEET ENEMA-AD118 ML PR; +GABAPENTIN100 MG PO; +GLUCOPHAGE500 MG PO; +HALOPERIDOL2 MG/1 ML PO; +LOVENOX40 MG/0.4 SC; +MILK OF MAGN PO; +MORPHINE CON20 MG/M1 PO; +MUCINEX600 MG PO; +NEURONTIN100 MG PO; +NOVOLOG PE100 UNITS/ SC; +PHENERGAN-CODE120 ML PO; +PROMETHAZINE HC25 M1 PO; +REMERON30 M2 PO; +SENNA S TABLET1 EACH PO; +SENNA8.6 MG PO; +SPIRIVA RESPIMAT4 GM IH; +TRAMADOL HCL50 MG PO; +TYLENOL ARTHRI650 MG PO; +ULTRAM50 MG PO; +VITAMIN B-12500 MC5 SL; +ZOLOFT25 MG PO
[2017-07-04 12:03] LABS: HEMATOCRIT 31.6 % (38.0-50.0); MCH 32.2 PG (29.0-34.0); MCHC 31.6 G/DL (30.0-36.0); MCV 101.6 FL (86-99); MEAN PLAT.VOLUME 10.3 uM^3 (9.0-12.4); PLATELET COUNT 202 K/uL (156-360); RBC DIS.WIDTH-CV 16.6 % (11.8-14.6); RBC DIS.WIDTH-SD 61.8 % (39-53); RED BLOOD COUNT 3.11 M/uL (4.00-5.50); WHITE BLOOD COUNT 6.4 K/uL (4.1-10.2)
[2017-07-04 12:15] LABS: CHLORIDE 108 mEq/L (99-109); POTASSIUM 4.2 mEq/L (3.7-5.4); SODIUM 140 mEq/L (136-147)
[2017-07-04 12:17] LABS: GLUCOSE 135 mg/dL (70-99)
[2017-07-04 12:18] LABS: ANION GAP 7 MEQ/L (2-14)
[2017-07-04 12:20] LABS: GFR ESTIMATE (CALCULATED) > 59 mL/min/
[2017-07-04 12:21] LABS: UREA NITROGEN (BUN) 26 mg/dL (9-23)
[2017-07-04 12:25] LABS: TROP-I INTERPRETATION NEGATIVE; TROPONIN-I < 0.01 ng/mL (0.0-0.30)
[2017-07-04] MEDS ORDERED: CIPRO500 MG PO (14:27)
[2017-07-04 14:38] LABS: ADD MIUA? YES; BILIRUBIN NEGATIVE; BLOOD SMALL; COLOR YELLOW ((YELLOW)); GLUCOSE (STRIP) NEGATIVE; KETONES NEGATIVE; LEUKOCYTES LARGE; NITRITE NEGATIVE; PROTEIN (STRIP) 100; SPECIFIC GRAVITY 1.017 (1.000-1.030); UROBILINOGEN 0.2 MG/DL (0.2-1.0)
[2017-07-04 15:10] VITALS: BP 127/55
[2017-07-04 15:20] LABS: RED BLOOD CELLS 0-5 /HPF (0-5); WHITE BLOOD CELLS 30-40 /HPF (0-5)
[2017-07-04 15:21] LABS: BACTERIA 2+ /HPF; CASTS NONE SEEN /LPF; CRYSTALS PRESENT; EPITHELIAL CELLS NONE SEEN /HPF; MUCUS NONE SEEN /LPF; UCUL ADDED? YES
[2017-07-04 15:23] LABS: AMORPHOUS URATES CRYSTALS 2+
== END 2017-07-04 15:35 | disposition home or self-care (01) ==
LOC: EME 11:10
PROVIDERS: Emergency Medicine
DX: R53.1 Weakness (principal); I44.0 Atrioventricular block, first degree; I12.9 Hypertensive chronic kidney disease with stage 1 through stage 4 chronic kidney disease, or unspecified chronic kidney disease; N18.9 Chronic kidney disease, unspecified; J44.9 Chronic obstructive pulmonary disease, unspecified; E78.5 Hyperlipidemia, unspecified; F03.90 Unspecified dementia, unspecified severity, without behavioral disturbance, psychotic disturbance, mood disturbance, and anxiety; I25.2 Old myocardial infarction; F17.200 Nicotine dependence, unspecified, uncomplicated; Z95.1 Presence of aortocoronary bypass graft; Z95.2 Presence of prosthetic heart valve; Z85.46 Personal history of malignant neoplasm of prostate; Z88.0 Allergy status to penicillin; Z91.041 Radiographic dye allergy status; Z88.8 Allergy status to other drugs, medicaments and biological substances
CPT/HCPCS: 71010; 80048; 81003; 84484; 85027; 87077; 87086; 87186; 93005; 99281; 99285; G8978 GP CJ; G8979 GP CI; G8980 CJ; G8987 GO CJ; G8988 CI; G8988 GO CH; G8989 CJ

== ENCOUNTER 2017-07-19 16:02 | Emergency (ER) | payer OTHER ==
[~2017-07-19] VITALS: Ht 180.3 cm; Wt 74.4 kg
[2017-07-19] MEDS ORDERED: PERCOCET 5/31 TABLET PO (20:41)
[2017-07-19 20:46] VITALS: BP 100/55
== END 2017-07-19 20:52 | disposition home or self-care (01) ==
LOC: EME 16:02
DX: M25.462 Effusion, left knee (principal); R60.0 Localized edema; M25.552 Pain in left hip; I12.9 Hypertensive chronic kidney disease with stage 1 through stage 4 chronic kidney disease, or unspecified chronic kidney disease; E11.22 Type 2 diabetes mellitus with diabetic chronic kidney disease; N18.9 Chronic kidney disease, unspecified; J44.9 Chronic obstructive pulmonary disease, unspecified; E78.5 Hyperlipidemia, unspecified; F03.90 Unspecified dementia, unspecified severity, without behavioral disturbance, psychotic disturbance, mood disturbance, and anxiety; I25.2 Old myocardial infarction; M10.9 Gout, unspecified; F17.200 Nicotine dependence, unspecified, uncomplicated; Z95.1 Presence of aortocoronary bypass graft; Z85.46 Personal history of malignant neoplasm of prostate; Z88.0 Allergy status to penicillin; Z88.8 Allergy status to other drugs, medicaments and biological substances
CPT/HCPCS: 73502; 73564; 93971; 99281; 99284

== ENCOUNTER 2017-07-21 19:12 | Inpatient (IN) | payer OTHER ==
[~2017-07-21] VITALS: Ht 180.3 cm; Wt 64.0 kg
[2017-07-21 20:22] LABS: HEMATOCRIT 30.6 % (38.0-50.0); MCH 32.2 PG (29.0-34.0); MCHC 32.4 G/DL (30.0-36.0); MCV 99.7 FL (86-99); MEAN PLAT.VOLUME 10.3 uM^3 (9.0-12.4); PLATELET COUNT 187 K/uL (156-360); RBC DIS.WIDTH-CV 15.9 % (11.8-14.6); RED BLOOD COUNT 3.07 M/uL (4.00-5.50); WHITE BLOOD COUNT 8.8 K/uL (4.1-10.2)
[2017-07-21 20:34] LABS: INTER. NORMALIZED RATIO 1.1
[2017-07-21 20:43] LABS: CHLORIDE 108 mEq/L (99-109); POTASSIUM 4.2 mEq/L (3.7-5.4); SODIUM 141 mEq/L (136-147)
[2017-07-21 20:45] LABS: GLUCOSE 84 mg/dL (70-99)
[2017-07-21 20:46] LABS: ANION GAP 10 MEQ/L (2-14)
[2017-07-21 20:48] LABS: GFR ESTIMATE (CALCULATED) 41 mL/min/ (58.99-99999)
[2017-07-21 20:49] LABS: UREA NITROGEN (BUN) 46 mg/dL (9-23)
[2017-07-21 20:51] LABS: TROP-I INTERPRETATION NEGATIVE; TROPONIN-I 0.06 ng/mL (0.0-0.30)
[2017-07-21 22:05] LABS: ADD MIUA? YES; BILIRUBIN NEGATIVE; BLOOD NEGATIVE; COLOR YELLOW ((YELLOW)); GLUCOSE (STRIP) NEGATIVE; KETONES NEGATIVE; LEUKOCYTES LARGE; NITRITE NEGATIVE; PROTEIN (STRIP) 100; SPECIFIC GRAVITY 1.014 (1.000-1.030); UROBILINOGEN 0.2 MG/DL (0.2-1.0)
[2017-07-21 22:21] LABS: BACTERIA 1+ /HPF; CASTS NONE SEEN /LPF; CRYSTALS PRESENT; EPITHELIAL CELLS RARE /HPF; MUCUS NONE SEEN /LPF; RED BLOOD CELLS NONE SEEN /HPF (0-5); WHITE BLOOD CELLS RARE /HPF (0-5)
[2017-07-22] MEDS ORDERED: GLIPIZIDE5 MG PO (01:21)
[2017-07-22] MEDS ORDERED: GABAPENTIN300 MG PO (01:21)
[2017-07-22] MEDS ORDERED: METFORMIN HCL500 M1 PO (01:22)
[2017-07-22] MEDS ORDERED: HYDROCHLOROTH12.5 M3 PO (01:22)
[2017-07-22] MEDS ORDERED: LISINOPRIL10 MG PO (01:23)
[2017-07-22] MEDS ORDERED: TRAMADOL HCL50 MG PO (01:24)
[2017-07-22 02:18] LABS: APPEARANCE SL. HAZY-YELLOW; MONONUCLEAR WBC'S 4 %; POLYNUCLEAR WBC'S 96 % (0-25); RED CELL COUNT 9000 /MM^3 (0-1); SYNOVIAL FLUID EOSINOPHILS 0 % (0-25); WHITE CELL COUNT 4389 /MM^3 (0-200.0)
[2017-07-22 04:06] LABS: TROP-I INTERPRETATION NEGATIVE; TROPONIN-I 0.04 ng/mL (0.0-0.30)
[2017-07-22 04:20] VITALS: BP 139/63
[2017-07-22 06:20] LABS: POINT-OF-CARE METER ID UU14117124
[2017-07-22 07:03] LABS: CRYSTALS NO CRYSTALS SEEN
[2017-07-22 08:30] VITALS: BP 165/76
[2017-07-22 08:31] LABS: HEMATOCRIT 31.6 % (38.0-50.0); MCH 31.8 PG (29.0-34.0); MCHC 32.3 G/DL (30.0-36.0); MCV 98.4 FL (86-99); MEAN PLAT.VOLUME 10.2 uM^3 (9.0-12.4); PLATELET COUNT 184 K/uL (156-360); RBC DIS.WIDTH-CV 15.7 % (11.8-14.6); RED BLOOD COUNT 3.21 M/uL (4.00-5.50); WHITE BLOOD COUNT 7.6 K/uL (4.1-10.2)
[2017-07-22 10:00] LABS: TROP-I INTERPRETATION NEGATIVE; TROPONIN-I 0.03 ng/mL (0.0-0.30)
[2017-07-22 10:16] LABS: ANION GAP 11 MEQ/L (2-14); CHLORIDE 107 MEQ/L (99-109); GFR ESTIMATE (CALCULATED) > 59 mL/min/ (58.99-99999); GLUCOSE 100 mg/dL (70-99); POTASSIUM 4.1 MEQ/L (3.7-5.4); SAMPLE HEMOLYSIS CHECK 0; SAMPLE ICTERIC CHECK 0; SAMPLE LIPEMIA CHECK 0; SODIUM 143 MEQ/L (136-147); UREA NITROGEN (BUN) 38 mg/dL (9-23)
[2017-07-22 13:14] LABS: POINT-OF-CARE METER ID UU13113675
[2017-07-22 16:30] VITALS: BP 154/78
[2017-07-22 16:50] LABS: POINT-OF-CARE METER ID UU14117124
[2017-07-22 20:04] VITALS: BP 161/70
[2017-07-22 21:17] LABS: POINT-OF-CARE METER ID UU14149397
[2017-07-22 23:22] VITALS: BP 125/61
[2017-07-23 05:10] VITALS: BP 125/58
[2017-07-23 07:25] LABS: MCH 32.3 PG (29.0-34.0); MCHC 32.7 G/DL (30.0-36.0); MCV 98.9 FL (86-99); MEAN PLAT.VOLUME 10.4 uM^3 (9.0-12.4); PLATELET COUNT 177 K/uL (156-360); RBC DIS.WIDTH-CV 15.6 % (11.8-14.6); RBC DIS.WIDTH-SD 56.3 % (39-53); RED BLOOD COUNT 2.63 M/uL (4.00-5.50); WHITE BLOOD COUNT 7.3 K/uL (4.1-10.2)
[2017-07-23 07:49] LABS: ANION GAP 8 MEQ/L (2-14); CHLORIDE 107 MEQ/L (99-109); GFR ESTIMATE (CALCULATED) > 59 mL/min/ (58.99-99999); GLUCOSE 92 mg/dL (70-99); SAMPLE HEMOLYSIS CHECK 0; SAMPLE ICTERIC CHECK 0; SAMPLE LIPEMIA CHECK 0; SODIUM 142 MEQ/L (136-147); UREA NITROGEN (BUN) 28 mg/dL (9-23)
[2017-07-23 08:08] LABS: POINT-OF-CARE METER ID UU14117124
[2017-07-23 08:26] VITALS: BP 147/66
[2017-07-23 11:22] LABS: POINT-OF-CARE METER ID UU14149397
[2017-07-23 12:24] VITALS: BP 140/75
[2017-07-23 15:55] VITALS: BP 132/71
[2017-07-23 16:18] LABS: POINT-OF-CARE METER ID UU14149397
[2017-07-23 20:06] VITALS: BP 162/72
[2017-07-23 21:51] LABS: POINT-OF-CARE METER ID UU14117124
[2017-07-24] VITALS (7 sets, daily range): BP systolic 135–176; BP diastolic 65–83
[2017-07-24 05:54] LABS: HEMATOCRIT 26.9 % (38.0-50.0); MCV 97.1 FL (86-99); MEAN PLAT.VOLUME 10.8 uM^3 (9.0-12.4); PLATELET COUNT 191 K/uL (156-360); RBC DIS.WIDTH-CV 15.3 % (11.8-14.6); RBC DIS.WIDTH-SD 54.7 % (39-53); RED BLOOD COUNT 2.77 M/uL (4.00-5.50); WHITE BLOOD COUNT 7.4 K/uL (4.1-10.2)
[2017-07-24 06:29] LABS: ANION GAP 8 MEQ/L (2-14); CHLORIDE 104 MEQ/L (99-109); GFR ESTIMATE (CALCULATED) > 59 mL/min/ (58.99-99999); GLUCOSE 95 mg/dL (70-99); SAMPLE HEMOLYSIS CHECK 0; SAMPLE ICTERIC CHECK 0; SAMPLE LIPEMIA CHECK 0; SODIUM 138 MEQ/L (136-147); UREA NITROGEN (BUN) 23 mg/dL (9-23)
[2017-07-24 06:50] LABS: POINT-OF-CARE METER ID UU14117124
[2017-07-24 11:52] LABS: POINT-OF-CARE METER ID UU14188577
[2017-07-24 16:53] LABS: POINT-OF-CARE METER ID UU14117124
[2017-07-24 21:48] LABS: POINT-OF-CARE METER ID UU14117124
[2017-07-25] VITALS (7 sets, daily range): BP systolic 131–164; BP diastolic 63–84
[2017-07-25 06:43] LABS: POINT-OF-CARE METER ID UU14149397
[2017-07-25 06:44] LABS: HEMATOCRIT 27.4 % (38.0-50.0); MCH 30.6 PG (29.0-34.0); MCHC 31.8 G/DL (30.0-36.0); MCV 96.5 FL (86-99); MEAN PLAT.VOLUME 10.6 uM^3 (9.0-12.4); PLATELET COUNT 205 K/uL (156-360); RBC DIS.WIDTH-CV 15.4 % (11.8-14.6); RBC DIS.WIDTH-SD 54.6 % (39-53); RED BLOOD COUNT 2.84 M/uL (4.00-5.50); WHITE BLOOD COUNT 6.3 K/uL (4.1-10.2)
[2017-07-25 07:08] LABS: ANION GAP 8 MEQ/L (2-14); CHLORIDE 106 MEQ/L (99-109); GFR ESTIMATE (CALCULATED) > 59 mL/min/ (58.99-99999); GLUCOSE 118 mg/dL (70-99); POTASSIUM 4.1 MEQ/L (3.7-5.4); SAMPLE HEMOLYSIS CHECK 0; SAMPLE ICTERIC CHECK 0; SAMPLE LIPEMIA CHECK 0; SODIUM 142 MEQ/L (136-147); UREA NITROGEN (BUN) 21 mg/dL (9-23)
[2017-07-25 11:45] LABS: POINT-OF-CARE METER ID UU14208753
[2017-07-25] MEDS ORDERED: CEFTRIAXONE2 G1 IV (16:10)
[2017-07-25] MEDS ORDERED: ELIQUIS2.5 MG PO (16:13)
[2017-07-25] MEDS ORDERED: THERAGRAN1 TABLET PO (16:20)
[2017-07-25 16:31] LABS: POINT-OF-CARE METER ID UU14208753
[2017-07-25] MEDS ORDERED: TRAMADOL HCL50 MG PO (16:32)
[2017-07-25] MEDS ORDERED: PERCOCET 5/31 TABLET PO (16:32)
[2017-07-25 22:04] LABS: POINT-OF-CARE METER ID UU14188577
[2017-07-26 03:41] VITALS: BP 169/80
[2017-07-26 07:05] LABS: POINT-OF-CARE METER ID UU14208753
[2017-07-26 08:12] VITALS: BP 146/67
[2017-07-26 11:47] VITALS: BP 130/61
[2017-07-26 11:56] LABS: POINT-OF-CARE METER ID UU14117124
[2017-07-26 15:47] VITALS: BP 163/70
[2017-07-26 16:16] LABS: POINT-OF-CARE METER ID UU14117124
[2017-07-26 20:23] VITALS: BP 160/72
[2017-07-26 21:58] LABS: POINT-OF-CARE METER ID UU14117124
[2017-07-27] VITALS (7 sets, daily range): BP systolic 99–158; BP diastolic 53–86
[2017-07-27 06:50] LABS: POINT-OF-CARE METER ID UU14208753
[2017-07-27 07:01] LABS: EOSINOPHIL (%) 7.4 % (0-5); EOSINOPHIL COUNT 0.5 K/uL (0-0.3); HEMATOCRIT 28.3 % (38.0-50.0); IMMATURE GRANULOCYTE (%) 0.4 % (0.0-0.7); INSTRUMENT ABS NEUTROPHIL CT 4.1 K/uL; LYMPHOCYTE COUNT 1.3 K/uL (1.0-2.8); MCH 30.7 PG (29.0-34.0); MCHC 32.2 G/DL (30.0-36.0); MCV 95.6 FL (86-99); MEAN PLAT.VOLUME 10.2 uM^3 (9.0-12.4); MONOCYTE (%) 14.4 % (3-12); NEUTROPHIL (%) 58.5 % (45-76); NEUTROPHIL COUNT 4.1 K/uL (1.8-6.4); PLATELET COUNT 219 K/uL (156-360); RBC DIS.WIDTH-CV 15.5 % (11.8-14.6); RBC DIS.WIDTH-SD 54.1 % (39-53); RED BLOOD COUNT 2.96 M/uL (4.00-5.50); WHITE BLOOD COUNT 7.1 K/uL (4.1-10.2)
[2017-07-27 07:23] LABS: ANION GAP 8 MEQ/L (2-14); CHLORIDE 102 MEQ/L (99-109); GFR ESTIMATE (CALCULATED) > 59 mL/min/ (58.99-99999); GLUCOSE 119 mg/dL (70-99); POTASSIUM 4.6 MEQ/L (3.7-5.4); SAMPLE HEMOLYSIS CHECK 2; SAMPLE ICTERIC CHECK 0; SAMPLE LIPEMIA CHECK 0; SODIUM 139 MEQ/L (136-147); UREA NITROGEN (BUN) 26 mg/dL (9-23)
[2017-07-27 11:37] LABS: POINT-OF-CARE METER ID UU14208753
[2017-07-27 16:24] LABS: POINT-OF-CARE METER ID UU14117124
[2017-07-27 21:45] LABS: POINT-OF-CARE METER ID UU14117124
[2017-07-28 06:27] LABS: EOSINOPHIL (%) 8.1 % (0-5); EOSINOPHIL COUNT 0.6 K/uL (0-0.3); HEMATOCRIT 30.5 % (38.0-50.0); IMMATURE GRANULOCYTE (%) 0.3 % (0.0-0.7); LYMPHOCYTE COUNT 1.3 K/uL (1.0-2.8); MCH 30.9 PG (29.0-34.0); MCHC 32.1 G/DL (30.0-36.0); MCV 96.2 FL (86-99); MEAN PLAT.VOLUME 10.6 uM^3 (9.0-12.4); MONOCYTE (%) 16.2 % (3-12); MONOCYTE COUNT 1.2 K/uL (0-0.8); PLATELET COUNT 240 K/uL (156-360); RBC DIS.WIDTH-CV 15.6 % (11.8-14.6); RBC DIS.WIDTH-SD 54.6 % (39-53); RED BLOOD COUNT 3.17 M/uL (4.00-5.50); WHITE BLOOD COUNT 7.1 K/uL (4.1-10.2)
[2017-07-28 06:52] LABS: ANION GAP 9 MEQ/L (2-14); CHLORIDE 101 MEQ/L (99-109); GFR ESTIMATE (CALCULATED) > 59 mL/min/ (58.99-99999); GLUCOSE 111 mg/dL (70-99); POTASSIUM 4.3 MEQ/L (3.7-5.4); SAMPLE HEMOLYSIS CHECK 0; SAMPLE ICTERIC CHECK 0; SAMPLE LIPEMIA CHECK 0; SODIUM 140 MEQ/L (136-147)
[2017-07-28 06:59] LABS: UREA NITROGEN (BUN) 40 mg/dL (9-23)
[2017-07-28 07:06] LABS: POINT-OF-CARE METER ID UU14149397
[2017-07-28 11:06] VITALS: BP 124/57
[2017-07-28 12:03] LABS: POINT-OF-CARE METER ID UU14208753
[2017-07-28 15:22] VITALS: BP 112/55
[2017-07-28 16:23] LABS: POINT-OF-CARE METER ID UU14117124
[2017-07-28 19:17] VITALS: BP 148/69
[2017-07-28 21:41] LABS: POINT-OF-CARE METER ID UU14188577
[2017-07-28 23:15] VITALS: BP 150/65
[2017-07-29 04:44] VITALS: BP 135/66
[2017-07-29 06:17] LABS: POINT-OF-CARE METER ID UU14117124
[2017-07-29 08:14] VITALS: BP 125/58
[2017-07-29 11:11] VITALS: BP 122/60
[2017-07-29 11:29] LABS: POINT-OF-CARE METER ID UU14188577
[2017-07-29] MEDS ORDERED: VANCOMYCIN HCL1 GM IV (13:56)
[2017-07-29 15:55] VITALS: BP 135/61
[2017-07-29 17:23] LABS: POINT-OF-CARE METER ID UU14117124
== END 2017-07-29 19:53 | DRG 488 ==
LOC: EME → EDBD 19:12 → 3EAST 07-22 00:19 → EDOF 07-22 00:19 → ENRESERV 07-22 00:22 → 3EAST 07-22 02:43
PROVIDERS: Hospitalist; Internal Medicine; Physician Assistant Medical
PROC: 0SBD4ZZ Excision of Left Knee Joint, Percutaneous Endoscopic Approach (ICD-10-PCS; principal; 2017-07-22)
PROC: 0S9D3ZZ Drainage of Left Knee Joint, Percutaneous Approach (ICD-10-PCS; 2017-07-22)
DX: M00.9 Pyogenic arthritis, unspecified (principal); G93.41 Metabolic encephalopathy; T82.6XXA Infection and inflammatory reaction due to cardiac valve prosthesis, initial encounter; Y83.1 Surgical operation with implant of artificial internal device as the cause of abnormal reaction of the patient, or of later complication, without mention of misadventure at the time of the procedure; I33.0 Acute and subacute infective endocarditis; N17.9 Acute kidney failure, unspecified; E86.0 Dehydration; T83.031A Leakage of indwelling urethral catheter, initial encounter; Y84.6 Urinary catheterization as the cause of abnormal reaction of the patient, or of later complication, without mention of misadventure at the time of the procedure; L89.320 Pressure ulcer of left buttock, unstageable; L89.310 Pressure ulcer of right buttock, unstageable; L89.150 Pressure ulcer of sacral region, unstageable; L89.520 Pressure ulcer of left ankle, unstageable; L89.891 Pressure ulcer of other site, stage 1; I12.9 Hypertensive chronic kidney disease with stage 1 through stage 4 chronic kidney disease, or unspecified chronic kidney disease; E11.22 Type 2 diabetes mellitus with diabetic chronic kidney disease; N18.9 Chronic kidney disease, unspecified; J44.9 Chronic obstructive pulmonary disease, unspecified; D64.9 Anemia, unspecified; M10.9 Gout, unspecified; G30.9 Alzheimer's disease, unspecified; F02.80 Dementia in other diseases classified elsewhere, unspecified severity, without behavioral disturbance, psychotic disturbance, mood disturbance, and anxiety; E78.5 Hyperlipidemia, unspecified; I25.10 Atherosclerotic heart disease of native coronary artery without angina pectoris; R33.9 Retention of urine, unspecified; F17.200 Nicotine dependence, unspecified, uncomplicated; Z96.641 Presence of right artificial hip joint; Z66 Do not resuscitate; S72.002D Fracture of unspecified part of neck of left femur, subsequent encounter for closed fracture with routine healing; Z79.82 Long term (current) use of aspirin; Z95.1 Presence of aortocoronary bypass graft; Z91.041 Radiographic dye allergy status; Z88.0 Allergy status to penicillin; I25.2 Old myocardial infarction; Z86.718 Personal history of other venous thrombosis and embolism; Z95.5 Presence of coronary angioplasty implant and graft; Z85.46 Personal history of malignant neoplasm of prostate; Z95.3 Presence of xenogenic heart valve; Z90.79 Acquired absence of other genital organ(s)
CPT/HCPCS: 70450; 71020; 73552; 80048; 80202; 81003; 82140; 82948; 83605; 84484; 84550; 85025; 85027; 85610; 85651; 86140; 87040; 87086; 87205; 87502; 89051; 89060; 93005; 93306; 94640; 94640 76; 97530 GO; 97530 GP; 99202; 99281; 99285; C1755; J0696; J1450; J1815; J2250; J2270; J2405; J3010; J3370; J7030; J7040

== ENCOUNTER 2017-08-21 07:39 | Emergency (ER) | payer OTHER ==
[~2017-08-21] VITALS: Ht 180.3 cm; Wt 75.1 kg
[~2017-08-21 07:39] MED LIST changes: +CEFTRIAXONE2 G1 IV; +ELIQUIS2.5 MG PO; +GABAPENTIN300 MG PO; +METFORMIN HCL500 M1 PO; +VANCOMYCIN HCL1 GM IV
[2017-08-21 08:32] LABS: BASOPHIL (%) 0.3 % (0-1); EOSINOPHIL (%) 4.6 % (0-5); EOSINOPHIL COUNT 0.4 K/uL (0-0.3); HEMATOCRIT 31.4 % (38.0-50.0); IMMATURE GRANULOCYTE (%) 0.5 % (0.0-0.7); LYMPHOCYTE COUNT 1.1 K/uL (1.0-2.8); MCH 31.3 PG (29.0-34.0); MCHC 31.8 G/DL (30.0-36.0); MCV 98.4 FL (86-99); MONOCYTE (%) 8.9 % (3-12); MONOCYTE COUNT 0.8 K/uL (0-0.8); NEUTROPHIL (%) 73.7 % (45-76); NEUTROPHIL COUNT 6.5 K/uL (1.8-6.4); PLATELET COUNT 257 K/uL (156-360); RBC DIS.WIDTH-CV 16.3 % (11.8-14.6); RBC DIS.WIDTH-SD 58.3 % (39-53); RED BLOOD COUNT 3.19 M/uL (4.00-5.50); WHITE BLOOD COUNT 8.8 K/uL (4.1-10.2)
[2017-08-21 08:41] LABS: CHLORIDE 107 mEq/L (99-109); POTASSIUM 4.2 mEq/L (3.7-5.4); SODIUM 141 mEq/L (136-147)
[2017-08-21 08:43] LABS: GLUCOSE 114 mg/dL (70-99)
[2017-08-21 08:46] LABS: CREATININE 0.9 mg/dL (0.6-1.3); GFR ESTIMATE (CALCULATED) > 59 mL/min/ (58.99-99999)
[2017-08-21 08:47] LABS: UREA NITROGEN (BUN) 23 mg/dL (9-23)
[2017-08-21 14:14] VITALS: BP 180/86
== END 2017-08-21 15:09 ==
LOC: EME 07:39
PROVIDERS: Emergency Medicine
DX: S00.03XA Contusion of scalp, initial encounter (principal); M79.89 Other specified soft tissue disorders; W01.0XXA Fall on same level from slipping, tripping and stumbling without subsequent striking against object, initial encounter; Y92.122 Bedroom in nursing home as the place of occurrence of the external cause; F03.90 Unspecified dementia, unspecified severity, without behavioral disturbance, psychotic disturbance, mood disturbance, and anxiety; M00.9 Pyogenic arthritis, unspecified; E78.5 Hyperlipidemia, unspecified; I12.9 Hypertensive chronic kidney disease with stage 1 through stage 4 chronic kidney disease, or unspecified chronic kidney disease; N18.9 Chronic kidney disease, unspecified; I25.2 Old myocardial infarction; J44.9 Chronic obstructive pulmonary disease, unspecified; F17.200 Nicotine dependence, unspecified, uncomplicated; M10.9 Gout, unspecified; Z85.46 Personal history of malignant neoplasm of prostate; Z95.1 Presence of aortocoronary bypass graft; Z95.2 Presence of prosthetic heart valve; Z88.0 Allergy status to penicillin; Z88.8 Allergy status to other drugs, medicaments and biological substances
CPT/HCPCS: 70450; 72125; 73564; 80048; 85025; 93005; 93971; 99281; 99285

== ENCOUNTER 2017-09-12 23:41 | Inpatient (IN) | payer OTHER ==
[~2017-09-12] VITALS: Ht 180.3 cm; Wt 84.0 kg
[2017-09-13] VITALS (7 sets, daily range): BP systolic 144–173; BP diastolic 74–86
[2017-09-13 00:32] LABS: HEMATOCRIT 34.5 % (38.0-50.0); MCH 31.5 PG (29.0-34.0); MCHC 32.5 G/DL (30.0-36.0); MCV 96.9 FL (86-99); PLATELET COUNT 288 K/uL (156-360); RBC DIS.WIDTH-CV 16.2 % (11.8-14.6); RBC DIS.WIDTH-SD 58.1 % (39-53); WHITE BLOOD COUNT 9.1 K/uL (4.1-10.2)
[2017-09-13 00:34] LABS: APPEARANCE CLOUDY ((CLEAR)); BILIRUBIN NEGATIVE; BLOOD NEGATIVE; COLOR AMBER ((YELLOW)); GLUCOSE (STRIP) NEGATIVE; KETONES 5; LEUKOCYTES LARGE; NITRITE NEGATIVE; PROTEIN (STRIP) 100; SPECIFIC GRAVITY 1.023 (1.000-1.030); UROBILINOGEN 0.2 MG/DL (0.2-1.0)
[2017-09-13 00:38] LABS: HEMOGLOBIN 11.2 G/DL (12.5-16.6); RED BLOOD COUNT 3.56 M/uL (4.00-5.50)
[2017-09-13 00:43] LABS: ALBUMIN 3.9 g/dL (3.2-4.8); CHLORIDE 104 mEq/L (99-109); SODIUM 139 mEq/L (136-147)
[2017-09-13 00:46] LABS: GLUCOSE 128 mg/dL (70-99); TOTAL PROTEIN 7.7 g/dL (6.4-8.3)
[2017-09-13 00:47] LABS: BACTERIA RARE /HPF; EPITHELIAL CELLS RARE /HPF; HYALINE CASTS 20-30 /LPF; MUCUS TRACE /LPF; RED BLOOD CELLS TNTC /HPF (0-5); UCUL ADDED? YES; WHITE BLOOD CELLS TNTC /HPF (0-5)
[2017-09-13 00:48] LABS: TOTAL BILIRUBIN 0.4 mg/dL (0.0-1.0)
[2017-09-13 00:49] LABS: ALKALINE PHOSPHATASE 102 IU/L (3-129); CREATININE 1.6 mg/dL (0.6-1.3); GFR ESTIMATE (CALCULATED) 43 mL/min/ (58.99-99999)
[2017-09-13 00:50] LABS: UREA NITROGEN (BUN) 42 mg/dL (9-23)
[2017-09-13 00:51] LABS: AST (GOT) 17 IU/L (2-34)
[2017-09-13 00:52] LABS: ALT (GPT) 8 IU/L (3-49)
[2017-09-13 00:53] LABS: LIPASE 26 U/L (1.0-51.0)
[2017-09-13 00:55] LABS: TROP-I INTERPRETATION NEGATIVE; TROPONIN-I 0.02 ng/mL (0.0-0.30)
[2017-09-13] MEDS ORDERED: PERCOCET 5/31 TABLET PO (09:18)
[2017-09-13] MEDS ORDERED: TRAMADOL HCL50 MG PO (09:18)
[2017-09-13] MEDS ORDERED: NORVASC5 MG PO (09:28)
[2017-09-13] MEDS ORDERED: DULCOLAX10 MG PR (09:29)
[2017-09-13] MEDS ORDERED: MILK OF MAGN PO (09:29)
[2017-09-13] MEDS ORDERED: PROBIOTIC1 EAC1 PO (09:30)
[2017-09-13] MEDS ORDERED: ASCORBIC ACID100 MG PO (09:31)
[2017-09-13 12:48] LABS: HEMATOCRIT 31.5 % (38.0-50.0); HEMOGLOBIN 9.8 G/DL (12.5-16.6); MCH 31.4 PG (29.0-34.0); MCHC 31.1 G/DL (30.0-36.0); PLATELET COUNT 229 K/uL (156-360); RBC DIS.WIDTH-CV 16.3 % (11.8-14.6); RBC DIS.WIDTH-SD 59.7 % (39-53); RED BLOOD COUNT 3.12 M/uL (4.00-5.50); WHITE BLOOD COUNT 6.9 K/uL (4.1-10.2)
[2017-09-13 13:02] LABS: CHLORIDE 106 MEQ/L (99-109); CREATININE 1.2 MG/DL (0.6-1.3); GFR ESTIMATE (CALCULATED) > 59 mL/min/ (58.99-99999); GLUCOSE 137 mg/dL (70-99); POTASSIUM 3.9 MEQ/L (3.7-5.4); SODIUM 142 MEQ/L (136-147); UREA NITROGEN (BUN) 36 mg/dL (9-23)
[2017-09-14 06:50] LABS: CHLORIDE 104 MEQ/L (99-109); GFR ESTIMATE (CALCULATED) > 59 mL/min/ (58.99-99999); GLUCOSE 116 mg/dL (70-99); POTASSIUM 3.8 MEQ/L (3.7-5.4); SODIUM 139 MEQ/L (136-147); UREA NITROGEN (BUN) 26 mg/dL (9-23)
[2017-09-14 06:56] LABS: HEMATOCRIT 31.1 % (38.0-50.0); HEMOGLOBIN 9.8 G/DL (12.5-16.6); MCH 30.5 PG (29.0-34.0); MCHC 31.5 G/DL (30.0-36.0); PLATELET COUNT 247 K/uL (156-360); RBC DIS.WIDTH-CV 15.8 % (11.8-14.6); RED BLOOD COUNT 3.21 M/uL (4.00-5.50); WHITE BLOOD COUNT 7.4 K/uL (4.1-10.2)
[2017-09-14 06:57] LABS: MCV 96.9 FL (86-99)
[2017-09-14 08:00] VITALS: BP 171/82
[2017-09-14 17:00] VITALS: BP 148/85
[2017-09-15 00:14] VITALS: BP 163/79
[2017-09-15 08:39] VITALS: BP 175/90
[2017-09-15 16:32] VITALS: BP 118/64
[2017-09-15 23:38] VITALS: BP 183/95
[2017-09-16 07:47] VITALS: BP 159/91
[2017-09-16 16:30] VITALS: BP 151/94
[2017-09-16 23:55] VITALS: BP 181/98
[2017-09-17 08:13] VITALS: BP 133/64
[2017-09-17 10:40] LABS: HEMATOCRIT 32.6 % (38.0-50.0); HEMOGLOBIN 10.5 G/DL (12.5-16.6); MCH 30.7 PG (29.0-34.0); MCHC 32.2 G/DL (30.0-36.0); MCV 95.3 FL (86-99); PLATELET COUNT 214 K/uL (156-360); RBC DIS.WIDTH-CV 15.9 % (11.8-14.6); RBC DIS.WIDTH-SD 55.6 % (39-53); RED BLOOD COUNT 3.42 M/uL (4.00-5.50); WHITE BLOOD COUNT 8.4 K/uL (4.1-10.2)
[2017-09-17 15:45] LABS: CHLORIDE 103 MEQ/L (99-109); CREATININE 0.8 MG/DL (0.6-1.3); GFR ESTIMATE (CALCULATED) > 59 mL/min/ (58.99-99999); GLUCOSE 161 mg/dL (70-99); SODIUM 139 MEQ/L (136-147); UREA NITROGEN (BUN) 21 mg/dL (9-23)
[2017-09-17 16:11] VITALS: BP 123/58
[2017-09-18 00:55] VITALS: BP 172/88
[2017-09-18 08:45] VITALS: BP 164/83
[2017-09-18 13:02] VITALS: BP 121/55
[2017-09-18 17:01] VITALS: BP 116/65
[2017-09-19 09:04] VITALS: BP 178/85
[2017-09-19 10:56] LABS: BASOPHIL (%) 0.4 % (0-1); EOSINOPHIL (%) 2.9 % (0-5); EOSINOPHIL COUNT 0.3 K/uL (0-0.3); HEMATOCRIT 37.8 % (38.0-50.0); IMMATURE GRANULOCYTE (%) 0.3 % (0.0-0.7); LYMPHOCYTE COUNT 1.6 K/uL (1.0-2.8); MCH 31.2 PG (29.0-34.0); MCHC 31.7 G/DL (30.0-36.0); MCV 98.2 FL (86-99); MONOCYTE (%) 11.2 % (3-12); MONOCYTE COUNT 1.1 K/uL (0-0.8); NEUTROPHIL (%) 69.2 % (45-76); NEUTROPHIL COUNT 6.8 K/uL (1.8-6.4); PLATELET COUNT 183 K/uL (156-360); RBC DIS.WIDTH-CV 16.2 % (11.8-14.6); RBC DIS.WIDTH-SD 57.9 % (39-53); RED BLOOD COUNT 3.85 M/uL (4.00-5.50); WHITE BLOOD COUNT 9.8 K/uL (4.1-10.2)
[2017-09-19 11:07] LABS: CHLORIDE 102 MEQ/L (99-109); CREATININE 0.9 MG/DL (0.6-1.3); GFR ESTIMATE (CALCULATED) > 59 mL/min/ (58.99-99999); GLUCOSE 176 mg/dL (70-99); POTASSIUM 3.9 MEQ/L (3.7-5.4); SODIUM 137 MEQ/L (136-147); UREA NITROGEN (BUN) 22 mg/dL (9-23)
[2017-09-19 15:46] VITALS: BP 166/88
[2017-09-20] VITALS: BP 190/90
[2017-09-20 08:06] VITALS: BP 160/98
[2017-09-20 09:53] LABS: BASOPHIL (%) 0.3 % (0-1); EOSINOPHIL (%) 3.7 % (0-5); EOSINOPHIL COUNT 0.3 K/uL (0-0.3); HEMATOCRIT 34.6 % (38.0-50.0); HEMOGLOBIN 11.2 G/DL (12.5-16.6); IMMATURE GRANULOCYTE (%) 0.4 % (0.0-0.7); LYMPHOCYTE (%) 14.2 % (15-42); LYMPHOCYTE COUNT 1.3 K/uL (1.0-2.8); MCHC 32.4 G/DL (30.0-36.0); MCV 95.8 FL (86-99); MONOCYTE (%) 12.9 % (3-12); MONOCYTE COUNT 1.2 K/uL (0-0.8); NEUTROPHIL (%) 68.5 % (45-76); NEUTROPHIL COUNT 6.1 K/uL (1.8-6.4); PLATELET COUNT 156 K/uL (156-360); RBC DIS.WIDTH-CV 15.9 % (11.8-14.6); RBC DIS.WIDTH-SD 56.6 % (39-53); RED BLOOD COUNT 3.61 M/uL (4.00-5.50); WHITE BLOOD COUNT 8.9 K/uL (4.1-10.2)
[2017-09-20 11:13] LABS: CHLORIDE 102 MEQ/L (99-109); CREATININE 0.8 MG/DL (0.6-1.3); GFR ESTIMATE (CALCULATED) > 59 mL/min/ (58.99-99999); GLUCOSE 170 mg/dL (70-99); POTASSIUM 3.5 MEQ/L (3.7-5.4); SODIUM 140 MEQ/L (136-147); UREA NITROGEN (BUN) 21 mg/dL (9-23)
[2017-09-20] MEDS ORDERED: TRAZODONE HCL50 MG PO (14:44)
[2017-09-20] MEDS ORDERED: MORPHINE CON20 MG/M1 PO (14:44)
[2017-09-20] MEDS ORDERED: ATIVAN0.5 MG PO (14:44)
[2017-09-20] MEDS ORDERED: ANASPAZ0.125 MG PO (15:18)
== END 2017-09-20 17:28 | disposition hospice, home (50) | DRG 682 ==
LOC: EME → EDBD 23:41 → EDSEX 23:41 → EME 23:41 → EDOF 09-13 01:48 → 5SOUTH 09-13 01:48 → ENRESERV 09-13 01:49 → 5SOUTH 09-13 03:59
PROVIDERS: Emergency Medicine; Hospitalist; Internal Medicine; Physician Assistant Medical
DX: N17.9 Acute kidney failure, unspecified (principal); R62.7 Adult failure to thrive; M00.9 Pyogenic arthritis, unspecified; E86.0 Dehydration; R33.9 Retention of urine, unspecified; E43 Unspecified severe protein-calorie malnutrition; G30.9 Alzheimer's disease, unspecified; F02.80 Dementia in other diseases classified elsewhere, unspecified severity, without behavioral disturbance, psychotic disturbance, mood disturbance, and anxiety; D64.9 Anemia, unspecified; E78.5 Hyperlipidemia, unspecified; F17.200 Nicotine dependence, unspecified, uncomplicated; R64 Cachexia; J44.9 Chronic obstructive pulmonary disease, unspecified; Z96.641 Presence of right artificial hip joint; Z95.3 Presence of xenogenic heart valve; Z95.1 Presence of aortocoronary bypass graft; I25.10 Atherosclerotic heart disease of native coronary artery without angina pectoris; Z85.46 Personal history of malignant neoplasm of prostate; Z66 Do not resuscitate; M10.9 Gout, unspecified; E11.622 Type 2 diabetes mellitus with other skin ulcer; L97.929 Non-pressure chronic ulcer of unspecified part of left lower leg with unspecified severity; I12.9 Hypertensive chronic kidney disease with stage 1 through stage 4 chronic kidney disease, or unspecified chronic kidney disease; E11.22 Type 2 diabetes mellitus with diabetic chronic kidney disease; N18.9 Chronic kidney disease, unspecified; I25.2 Old myocardial infarction; Z79.01 Long term (current) use of anticoagulants; Z79.84 Long term (current) use of oral hypoglycemic drugs; Z51.5 Encounter for palliative care
CPT/HCPCS: 70450; 71045; 73030; 80048; 80048 91; 80053; 81003; 82948; 83605; 83690; 84484; 85025; 85027; 87040; 87086; 87106; 87502; 92526 GN; 92610 GN; 93005; 94640; 94640 76; 94760; 94799; 97530 GP; 99202; 99281; 99285; C1755; J0744; J1644; J7030